=== PATIENT | female | born 2000 | race Caucasian/White ===

== ENCOUNTER 2019-05-13 09:58 | Inpatient (IN) ==
--- NOTE | 2019-05-08 12:50 | Anesthesiology Consultation ---
Date of Service May 08, 2019 Assessment & Plan (1) Encounter for pre-operative examination: Chart Review Chart Review: Acceptable Risk for Surgery Consults Requested none History Surgery Operation Date: 05/13/19 13:15 Proposed Procedures p Laparoscopic Assisted - Ady Hinds DO s J Tube Placement - Ady Hinds DO Height/Weight Height: 5 ft 7 in Weight: 58.513 kg Allergies Allergy/AdvReac Type Severity Reaction Status Date / Time banana Allergy Mild Hives Verified 05/08/19 11:07 latex AdvReac Intermediate Hives Verified 05/08/19 11:07 Medications Home Medications Medication Instructions Recorded Confirmed Last Taken pantoprazole 40 mg PO BID 03/07/19 05/08/19 04/01/19 prucalopride [Motegrity] 2 mg PO QAM 03/07/19 05/08/19 04/01/19 levothyroxine 100 mcg tablet 100 mcg PO QPM tab 03/13/19 05/08/19 04/01/19 norethindrone 1 mg-ethinyl 1 tab PO DAILY tab 03/13/19 05/08/19 04/01/19 estradiol 20 mcg (21)-iron 75 mg (7) tablet acetaminophen [Tylenol] 325 mg PO Q6H PRN 04/02/19 05/08/19 04/02/19 granisetron [Sancuso] 1 patch TOPICAL WK 04/02/19 05/08/19 04/12/19 ondansetron 4 mg disintegrating 8 mg PO Q8H PRN #90 tab 04/14/19 05/08/19 Unknown tablet promethazine 25 mg PO Q6H PRN 04/18/19 05/08/19 Unknown Past Medical History Medical History IBS (irritable bowel syndrome) (Chronic) Migraines (Chronic) H/O Timothy thyroiditis (Resolved) POTS (postural orthostatic tachycardia syndrome) (Chronic) FOLLOWS W/ DR. ARMENTA Gastroparesis (Chronic) Cyclic vomiting syndrome (Acute) DDD (degenerative disc disease) Dysautonomia Psychogenic nonepileptic seizure H/O Past Family History Family History Grandfather (Maternal) Diabetes Heart disease Hypertension Stroke Grandmother Heart disease Cancer Hypertension Mother Family history of reaction to anesthesia PONV Past Surgical History Surgical History History of ankle surgery (Acute) right ankle History of colonoscopy History of esophagogastroduodenoscopy (EGD) Social History Smoking Status: Never smoker Do You Dip or Chew Tobacco: No Hx Alcohol Use: No Alcohol type: hard liquor alcohol intake frequency: holidays/special occasions only Hx Substance Use: No substance use type: does not use Testing Laboratory Results Laboratory Tests 04/18/19 04/18/19 12:36 12:36 WBC 5.07 Hgb 14.5 Plt Count 279 Sodium 137 Potassium 3.7 BUN 5 L Creatinine 0.87 Electrocardiogram Date: 03/07/19 Findings: + NSR @ (66/min) Chest X-Ray Date: 03/07/19 Findings: + NAD
[~2019-05-13 09:58] MED LIST: CEFAZOLIN 2000MG 2,000 MG/15 ML SYR IV SCH; DEXAMETHASONE SOD INJ 4 MG/ML VIAL ONE; LARYING-O-JET KIT (LTA) ONE; LIDOCAINE HCL 2% 2 ML VIAL/AMP(20MG/ML) INFIL ONE; MIDAZOLAM HCL 1 MG/ML 2ML VIAL ONE; ONDANSETRON INJ 2 MG/ML 2 ML VIAL ONE; PROPOFOL IV EMULSION 10 MG/ML 20 ML VIAL IV ONE; SODIUM CHLORIDE 0.9% 1000ML IV SCH; fentaNYL citrate 100 MCG/2 ML VIAL ONE
[2019-05-13] MEDS ORDERED: ePHEDrine sulfate 50 MG/ML AMP IV PRN (10:38)
[2019-05-13] MEDS ORDERED: ATROPINE SULFATE 0.1 MG/ML 10ML SYR IV PRN (10:38)
[2019-05-13] MEDS ORDERED: ONDANSETRON INJ 2 MG/ML 2 ML VIAL IV PRN (10:38)
[2019-05-13] MEDS ORDERED: PROMETHAZINE HCL 12.5 MG in SODIUM CHLORIDE 0.9% 50 ML IV PRN (10:39)
[2019-05-13] MEDS ORDERED: BUPIVACAINE 0.5 % 5 MG/1 ML MPF 30ML VIAL ONE (10:55)
[2019-05-13] MEDS ORDERED: EPINEPHrine INJ 1 MG/ML AMP ONE (10:55)
--- NOTE | 2019-05-13 11:44 | History & Physical Bridge Note ---
Date of Service May 13, 2019 History & Physical Bridge Note I have examined the patient, reviewed the History & Physical and in the interval since the performance of the History & Physical I have noted the following changes of clinical significance: no changes noted
[2019-05-13] MEDS ORDERED: fentaNYL citrate 100 MCG/2 ML VIAL ONE (12:20)
[2019-05-13] MEDS ORDERED: GLYCOPYRROLATE 0.2 MG/ML VIAL ONE ×2 (12:26→13:08)
[2019-05-13] MEDS ORDERED: ONDANSETRON INJ 2 MG/ML 2 ML VIAL ONE (12:26)
[2019-05-13] MEDS ORDERED: NEOSTIGMINE METHYLSULFATE 5 MG/5 ML SYR ONE (12:26)
[2019-05-13] MEDS ORDERED: SUCCINYLCHOLINE 100MG/5ML SYR ONE (12:27)
[2019-05-13] MEDS ORDERED: ROCURONIUM BROMIDE 10 MG/ML 5 ML VIAL ONE (12:27)
[2019-05-13] MEDS ORDERED: PROMETHAZINE HCL INJ 25 MG/ML 1 ML VIAL ONE (13:40)
[2019-05-13] MEDS: fentaNYL citrate 100 MCG/2 ML VIAL IV PRN ×4 (13:43→14:12)
--- NOTE | 2019-05-13 13:58 | Operative Report ---
PG Post Operative Report Pre & Post Diagnosis Operation Date: 05/13/19 11:30 Pre-Op Diagnosis: gastroparesis Post-Op Diagnosis: gastroparesis I identified the patient and participated in the time-out.: Yes Procedure Operation Date: 05/13/19 11:30 Actual Procedures p Laparoscopic Assisted J Tube Placement (Not Applicable) - Ady Hinds DO Surgeon Ady Hinds DO Supervisory Aide matt Johnson Estimated Blood Loss 5 Findings Consistent with Post-Op Diagnosis Specimens none Description of Procedure After informed consent was obtained the patient was taken to the operating room and placed in supine position. After successful intubation the abdomen was sterilely prepped and draped in usual fashion. A periumbilical incision was made with an 11 blade scalpel and carried down through soft tissue using cautery. The anterior fascia was opened using cautery and two #0 Vicryl stay sutures were placed. Peritoneum was elevated with hemostats and incised under direct vision using a Metzenbaum scissor. A finger sweep was performed. A 12 mm Larson trocar was placed and the abdomen was insufflated to 18 mmHg. La parocope was inserted and the abdomen examined in 360 degrees. No gross abnormalities were identified. A left upper quadrant 5 mm trocar was placed under direct vision. I identified the ligament of Treitz. I counted distally about 30 cm. I was able to grasp the small bowel with a grasper and pulled it up to the anterior abdominal wall. At this point we removed the scope and desufflated the abdomen. I extended the 5 mm trocar site using 11 blade scalpel and cautery. We opened the fascia far enough that I could deliver the small bowel onto the anterior abdominal wall. At this point I placed a 3-0 silk pursestring. We made a small enterotomy. I used a 14 Salvadorean T-tube. I placed fenestrations on both arms of the T-tube. I inserted it through the enterotomy such that one arm was proximal one arm was distal. I then secured the pursestring. I then created a Witzel tunnel. I did this using 3-0 silk as well. We did flush the due to prior to placing it and flushed it once it was inserted without difficulty. We pulled the tube up to the anterior abdominal wall and then I closed the fascia using 0 Vicryl in simple interrupted fashion. Wound was thoroughly irrigated and closed using 3-0 Vicryl for deep layers and 4-0 Monocryl for skin. Glue as well as gauze and tape were used as dressings. The patient was awaken extubated and transferred recovery in stable condition. My physician physical therapist assistant was present to the entire case. She will prep patient. Helped with retraction during my procedure as well as with wound closure and dressing placement. I attest to the content of the Intraoperative Record and any orders documented therein. Any exceptions are noted below.
--- NOTE | 2019-05-13 14:38 | Anesthesiology Progress Note ---
Date of Service May 13, 2019 Anesthesia Post Procedure Vital Signs Vital Signs: Temp Pulse Pulse Resp BP Pulse Ox 05/13/19 14:25 37.1 C 70 13 105/65 99 05/13/19 14:15 73 15 103/68 100 05/13/19 14:05 72 13 105/66 100 05/13/19 13:55 79 12 112/66 100 05/13/19 13:45 78 12 109/67 100 05/13/19 13:35 36.6 C 100 H 19 116/67 100 05/13/19 10:27 36.8 C 90 16 107/76 95 Pain Intensity Abdomen: Pain Intensity: 4 Transfer of Care Handoff Completed per policy Notes Mental Status: alert / awake / arousable and participated in evaluation Patient Amnestic to Procedure: Yes Nausea / Vomiting: adequately controlled Pain: adequately controlled Airway Patency, RR, SpO2: stable & adequate BP & HR: stable & adequate Hydration State: stable & adequate Anesthetic Complications: no major complications apparent and Pt Satisfied with anesthetic care
[2019-05-13] MEDS ORDERED: ACETAMINOPHEN 325 MG TAB PO PRN (14:57)
[2019-05-13] MEDS ORDERED: GRANISETRON TOP SCH (14:57)
[2019-05-13] MEDS ORDERED: MoRPHine SULFATE 4 MG/ML 1 ML CARP\\VIAL IV PRN ×3 (14:57→16:32)
[2019-05-13] MEDS ORDERED: MoRPHine SULFATE 10 MG/ML CARP/VIAL IV PRN (14:57)
[2019-05-13] MEDS: PROMETHAZINE HCL 12.5 MG in SODIUM CHLORIDE 0.9% 50 ML IV PRN (15:33)
[2019-05-13] MEDS: HYDROCODONE/ACETAMOPHEN 5/325MG TAB PO PRN ×2 (16:14→21:41)
[2019-05-13] MEDS: LACTATED RINGER'S 1,000 ML IV SCH (16:27)
[2019-05-13] MEDS: PEPTAMEN 1.5 CAL 1,000 ML BAG JT SCH (16:28)
[2019-05-13] MEDS ORDERED: MoRPHine SULFATE 2 MG/ML CARP IV PRN (16:29)
[2019-05-13] MEDS: ONDANSETRON INJ 2 MG/ML 2 ML VIAL IV PRN ×2 (18:12→22:54)
[2019-05-13] MEDS ORDERED: GRANISETRON TD ONE (20:30)
[2019-05-13] MEDS: LEVOTHYROXINE SODIUM 100 MCG TABLET PO SCH (21:10)
[2019-05-13] MEDS: PANTOprazole 40 MG TAB PO SCH (21:10)
[2019-05-14] MEDS: HYDROCODONE/ACETAMOPHEN 5/325MG TAB PO PRN ×4 (02:02→23:12)
[2019-05-14] MEDS: LACTATED RINGER'S 1,000 ML IV SCH (05:06)
[2019-05-14 05:20] LABS: Basophils # (auto) 0.01 K/uL (0-0.2); Basophils % (auto) 0.1 %; Eosinophils # (auto) 0.02 K/uL (0-0.5); Eosinophils % (auto) 0.2 %; Hematocrit (blood only) 31.7 % (37-47); Hemoglobin 10.6 g/dL (12.0-16.0); Immature Granulocytes # (auto) 0.02 K/uL (0.00-0.02); Immature Granulocytes % (auto) 0.2 %; Lymphocytes # (auto) 1.68 K/uL (1.2-3.4); Mean Corpuscular Hemoglobin 29.4 pg (25-34); Mean Corpuscular Hgb Conc 33.4 g/dL (32-36); Mean Corpuscular Volume 88.1 fL (80-100); Mean Platelet Volume 10.2 fL (7.4-10.4); Monocytes # (auto) 0.98 K/uL (0.11-0.59); Monocytes % (auto) 9.9 %; Neutrophils # (auto) 7.16 K/uL (1.4-6.5); Neutrophils % (auto) 72.6 %; Platelet Count 199 K/uL (130-400); RDW Coefficient of Variation 12.7 % (11.5-14.5); RDW Standard Deviation 41.2 fL (36.4-46.3); White Blood Count 9.87 K/uL (4.8-10.8)
[2019-05-14 06:00] LABS: BUN Creatinine Ratio 10.8 (10-20); Calcium 8.3 mg/dl (8.5-10.1); Est GFR (African American) 131.8; Est GFR (Non-African American) 113.7; Potassium 3.5 mmol/L (3.5-5.1)
--- NOTE | 2019-05-14 08:00 | Surgery Progress Note ---
Date of Service May 14, 2019 Assessment & Plan (1) Gastroparesis: POD#1 laparoscopic assisted jejunostomy feeding tube placement Since patient has been tolerating 15ml/hour over the course of a few hours will try to increase TEN again to 25ml/hr. Continue to monitor patient's symptoms w sheila uptitrating feeds Nutrition consultation for recommendations regarding goal rate and what pts 24hour caloric needs will be. Case management consult for help setting up TEN supplies and care for home as above. feeling ok but a little bit overwelmed... TF's back up to 25 cc/hr. tolerating so far. will re-eval later and hopefully can go up to 35 cc/hr. awaiting nutrition and case management consults. pt not ready for d/c. will keep another 24 hours. hopeful d/c tomorrow. Subjective Patient states that she tolerated TEN running at 15ml/hour overnight, however when it was bumped to 25ml/hr she developed some nausea and abdominal pain. At that time the TEN was initially held, then resumed at 15ml/hour. Patient denies vomiting. She tolerated some clears yesterday evening around dinner time. Feels better this AM. Physical Exam Physical Exam: awake/alert Gastrointestinal (Abdomen): Inspection/Auscultation: abdomen not distended Percussion/Palpation: + abdomen tender (mildly kishore-incisions) and abdomen soft J tube intact Results & Data Vital Signs (Past 12 Hours) Vital Signs Temp Pulse Resp BP Pulse Ox 05/14/19 07:00 37.0 C 71 16 90/50 L 98 05/14/19 03:02 37.0 C 78 14 91/49 L 98 05/13/19 23:51 37.2 C 67 14 94/57 L 96 PG Care Time/CCT Total # of Minutes Spent Total Time Spent with Patient: Total time spent is greater than 50% in coordination of care (as documented) at patient's floor/unit and/or counseling patient:
[2019-05-14] MEDS: PANTOprazole 40 MG TAB PO SCH ×2 (09:00→20:17)
[2019-05-14] MEDS: ONDANSETRON INJ 2 MG/ML 2 ML VIAL IV PRN ×2 (09:01→17:34)
[2019-05-14] MEDS ORDERED: POLYETHYLENE (MIRALAX) 17 GM PACK PO PRN (13:04)
--- NOTE | 2019-05-14 13:04 | Anesthesiology Consultation ---
Date of Service May 14, 2019 Assessment & Plan (1) Encounter for pre-operative examination: Chart Review Chart Review: data entry assistant initiated History Surgery Operation Date: 05/13/19 11:30 Proposed Procedures p Laparoscopic Assisted - Ady Hinds DO s J Tube Placement - Ady Hinds DO Height/Weight Height: 5 ft 7 in Weight: 58.513 kg Allergies Allergy/AdvReac Type Severity Reaction Status Date / Time banana Allergy Mild Hives Verified 05/13/19 10:15 latex AdvReac Intermediate Hives Verified 05/13/19 10:15 Medications Home Medications Medication Instructions Recorded Confirmed Last Taken pantoprazole 40 mg PO BID 03/07/19 05/13/19 05/10/19 08:00 prucalopride [Motegrity] 2 mg PO QAM 03/07/19 05/13/19 05/12/19 08:00 levothyroxine 100 mcg tablet 100 mcg PO QPM tab 03/13/19 05/13/19 05/12/19 23:00 norethindrone 1 mg-ethinyl 1 tab PO DAILY tab 03/13/19 05/13/19 05/12/19 23:00 estradiol 20 mcg (21)-iron 75 mg (7) tablet acetaminophen [Tylenol] 325 mg PO Q6H PRN 04/02/19 05/13/19 05/10/19 15:00 granisetron [Sancuso] 1 patch TOPICAL WK 04/02/19 05/13/19 05/11/19 ondansetron 4 mg disintegrating 8 mg PO Q8H PRN #90 tab 04/14/19 05/13/19 05/12/19 10:00 tablet promethazine 25 mg PO Q6H PRN 04/18/19 05/13/19 05/10/19 Active Medications Generic Name Dose Route Start Last Admin Trade Name Freq PRN Reason Stop Dose Admin Acetaminophen 325 mg 05/13/19 14:57 05/14/19 01:01 Tylenol PO 06/12/19 14:56 325 mg Q6H PRN Administration Pain Hydrocodone Bitart/Acetaminophen 1 tab 05/13/19 14:57 05/13/19 16:14 [place] 5/325 PO 05/27/19 14:56 1 tab Q4H PRN Administration MODERATE Pain (Scale 4,5,6) Hydrocodone Bitart/Acetaminophen 2 tab 05/13/19 14:57 05/14/19 12:07 [place] 5/325 PO 05/27/19 14:56 2 tab Q4H PRN Administration SEVERE Pain (Scale 7,8,9,10) Enteral Nutritional Formula 15 ml 05/13/19 16:00 05/13/19 16:28 Peptamen 1.5 [place] JT 06/12/19 15:59 15 ml DAILY@1600 VIKRAM Administration Protocol Promethazine HCl 12.5 mg/ 50.5 mls @ 204 mls/hr 05/13/19 14:57 05/13/19 15:48 Sodium Chloride IV 06/12/19 14:56 Infused Q6H PRN Infusion Nausea And Vomiting Levothyroxine Sodium 100 mcg 05/13/19 21:00 05/13/19 21:10 Synthroid PO 06/12/19 20:59 100 mcg QPM VIKRAM Administration Ondansetron HCl 4 mg 05/13/19 14:57 05/14/19 09:01 Zofran IV 06/12/19 14:56 4 mg Q4H PRN Administration Nausea And Vomiting Pantoprazole Sodium 40 mg 05/13/19 21:00 05/14/19 09:00 Protonix PO 06/12/19 20:59 40 mg BID VIKRAM Administration NPO Date Last Intake of Fluids: 05/12/19 Time Last Intake of Fluids: 23:00 Date Last Intake of Solids: 05/12/19 Time Last Intake of Solids: 19:00 Past Medical History Medical History Cyclic vomiting syndrome (Acute) DDD (degenerative disc disease) Dysautonomia Gastroparesis (Chronic) H/O Timothy thyroiditis (Resolved) IBS (irritable bowel syndrome) (Chronic) Migraines (Chronic) POTS (postural orthostatic tachycardia syndrome) (Chronic) FOLLOWS W/ DR. ARMENTA Psychogenic nonepileptic seizure H/O Past Family History Family History Grandfather (Maternal) Diabetes Heart disease Hypertension Stroke Grandmother Heart disease Cancer Hypertension Mother Family history of reaction to anesthesia PONV Past Surgical History Surgical History History of ankle surgery (Acute) right ankle History of colonoscopy History of esophagogastroduodenoscopy (EGD) Social History Smoking Status: Never smoker Do You Dip or Chew Tobacco: No Hx Alcohol Use: No Alcohol type: hard liquor alcohol intake frequency: holidays/special occasions only Hx Substance Use: No substance use type: does not use Physical Exam Vital Signs Last Vital Signs Temp 36.9 C 05/14/19 12:03 Pulse 72 05/14/19 12:03 Resp 16 05/14/19 12:03 BP 96/62 L 05/14/19 12:03 Pulse Ox 100 05/14/19 12:03 Testing Laboratory Results 05/14/19 04:40 05/14/19 04:40 05/13/19 09:12 POC Ur Test NEG Laboratory Tests 03/16/18 05/14/19 05/14/19 21:58 04:40 04:40 WBC 9.87 Hgb 10.6 L Hct 31.7 L Plt Count 199 Sodium 137 Potassium 3.5 Chloride 104 Carbon Dioxide 25 BUN 8 Creatinine 0.76 Glucose 100 H TSH 3.740 Electrocardiogram Date: 03/07/19 Findings: + NSR @ (66)
--- NOTE | 2019-05-14 13:06 | Anesthesiology Progress Note ---
Date of Service May 14, 2019 Anesthesia Post Procedure Vital Signs Vital Signs: Temp Pulse Pulse Resp BP Pulse Ox 05/14/19 12:03 36.9 C 72 16 96/62 L 100 05/14/19 07:00 37.0 C 71 16 90/50 L 98 05/14/19 03:02 37.0 C 78 14 91/49 L 98 05/13/19 23:51 37.2 C 67 14 94/57 L 96 05/13/19 19:26 37.0 C 76 16 96/59 L 96 05/13/19 17:43 36.7 C 66 16 95/58 L 94 05/13/19 16:48 37.0 C 72 16 94/57 L 99 05/13/19 15:52 37.0 C 74 14 98/59 L 98 05/13/19 15:18 37.1 C 72 14 98/60 L 98 05/13/19 15:10 37.4 C 75 16 100/63 99 05/13/19 14:25 37.1 C 70 13 105/65 99 05/13/19 14:15 73 15 103/68 100 05/13/19 14:05 72 13 105/66 100 05/13/19 13:55 79 12 112/66 100 05/13/19 13:45 78 12 109/67 100 05/13/19 13:35 36.6 C 100 H 19 116/67 100 Pain Intensity Abdomen: Pain Intensity: 7 Notes Mental Status: alert / awake / arousable Patient Amnestic to Procedure: Yes Nausea / Vomiting: improving with treatment (pt stated after she recieved phen ergan postop her nausea went back to her baseline level) Pain: improving with treatment Airway Patency, RR, SpO2: stable & adequate BP & HR: stable & adequate
[2019-05-14] MEDS: PEPTAMEN 1.5 CAL 1,000 ML BAG JT SCH (15:52)
[2019-05-14] MEDS ORDERED: PEPTAMEN 1.5 CAL 1,000 ML BAG JT SCH (16:00)
[2019-05-14] MEDS ORDERED: Nursing to Pharmacy Communication ONE (16:13)
[2019-05-14] MEDS: LEVOTHYROXINE SODIUM 100 MCG TABLET PO SCH (20:17)
[2019-05-14] MEDS: PROMETHAZINE HCL 12.5 MG in SODIUM CHLORIDE 0.9% 50 ML IV PRN (23:33)
[2019-05-15] MEDS: ONDANSETRON INJ 2 MG/ML 2 ML VIAL IV PRN ×2 (04:57→09:35)
[2019-05-15] MEDS: HYDROCODONE/ACETAMOPHEN 5/325MG TAB PO PRN ×2 (04:57→09:34)
[2019-05-15] MEDS: PANTOprazole 40 MG TAB PO SCH (07:39)
--- NOTE | 2019-05-15 12:20 | Surgery Progress Note ---
Date of Service May 15, 2019 Assessment & Plan (1) Jejunostomy tube present: POD#2 lap assisted jejunostomy tube placement Tolerating only slow advancement in TEN Will trial bumping to 35ml/hour now. Goal 50ml/hour over 24 hours Nutrition left TEN recommendations yesterday and case management working on setting up supplies for home Will plan for discharge to home today and allow patient to advance TEN based on her symptoms as above. feeling ok. tolerating 35 cc's/hour at the moment. having some cramping at times. discussed options. pt's mother is an ICU nurse and they would like to go home and try to slowly adjust/increase TF's on their own which I think is reasonable. If she is unable to tolerate we may need to change formulas. d/c instructions given. home care arranged to assist/deliver supplies. Subjective Patient reports she developed nausea, abdominal pain, and distention when TEN increased to 35ml/hour around 8pm last night. Since it has been backed down to 25ml/hour she has been feeling improvement in her symptoms. She is drinking majority of her meals. Passing flatus but no BM yet. Physical Exam Physical Exam: awake/alert Gastrointestinal (Abdomen): Inspection/Auscultation: + abdominal surgical incision (c/d/i with dermabond); abdomen not distended Percussion/Palpation: + abdomen tender (mildly kishore-incisionally) and abdomen soft Results & Data Vital Signs (Past 12 Hours) Vital Signs Temp Pulse Resp BP Pulse Ox 05/15/19 07:27 36.5 C 76 16 97/61 L 97 PG Care Time/CCT Total # of Minutes Spent Total Time Spent with Patient: Total time spent is greater than 50% in coordination of care (as documented) at patient's floor/unit and/or counseling patient:
--- NOTE | 2019-05-15 15:00 | Discharge Summary ---
Date of Service May 15, 2019 Principal Diagnosis s/p laparoscopic assisted jejunostomy tube placement gastroparesis Discharge Exam awake/alert Respiratory normal respiratory effort Gastrointestinal (Abdomen) Inspection/Auscultation: + abdominal surgical incision (c/d/i with dermabond); abdomen not distended Percussion/Palpation: + abdomen tender (mildly kishore-incisionally) and abdomen soft Discharge Data Allergies Allergy/AdvReac Type Severity Reaction Status Date / Time banana Allergy Mild Hives Verified 05/13/19 10:15 latex AdvReac Intermediate Hives Verified 05/13/19 10:15 Consultations 05/13/19 14:57 Consult Case Management - Discharge Planning Routine Procedures Performed Operation Date: 05/13/19 11:30 Actual Procedures p Laparoscopic Assisted J Tube Placement (Not Applicable) - Ady Hinds, DO Hospital Course (1) Gastroparesis: This is a 18y F with a PMH of severe gastroparesis who presents as a referral from her Physician in [place] for placement of a feeding jejunostomy tube. The patient was seen in our clinic previously for surgical planning. On 05/13/19 the patient went to the OR with Dr. Hinds for a laparoscopic assisted jejunostomy tube placement. The patient tolerated the procedure well, see operative report for full details. The patient recovered in the PACU and was transferred to the surgical floor in stable condition. Post operatively the patient's diet was advanced orally as tolerated. Patient mostly stuck to a clear liquid diet of which she tolerated well. Pain was managed with prn medications. Nutrition was consulted for recommendations regarding TEN formula and caloric requirements. Peptamen 1.5 was initially started via her j- tube at 15ml/hour with an ultimate goal of 50ml/hour over 24 hours. She was slow to advance due to intermittent nausea and complaints of abdominal pain with advancements in her feed. She eventually got to 35ml/hour on 05/15. Options were discussed with patient regarding trying another formula, vs continuing to slowly advance current TEN as she tolerates. She and her mother (who is an ICU nurse) ultimately chose to continue to advance the peptamen 1.5 as she tolerates over a longer period of time and expressed wishes to do this at home. Since patient was able to tolerate some oral intake it was agreed upon that patient could be safely discharged to home and continue to advance the TEN to goal of 50ml/hour as she tolerates. Her incisions remained c/d/i. She was instructed to follow up in clinic within 2 weeks for a post op check and to call if she had any issues with her J-tube or with advancing feeds on her own. She was given instructions regarding TEN advancement. Case management helped set up supplies to be delivered to her dorm. On 05/15 she was discharged to home. Total Time Total Time Spent Total Time Spent (In Minutes): 15 Discharge Plan Discharge Items Patient Disposition: Home - Home Health Services Reason For Visit: Gastroparesis Discharge Diagnosis: Jejunostomy feeding tube placement Activity: Per Instructions section Lifting: No more than 10 pounds Bathing Comment: may shower Exercise/Sports: Wait until after follow-up appointment Driving/Machine Use: do not resume driving while taking narcotic for pain Non-emergency contact: Surgeon Call non-emergency contact if: you have any medication questions, your symptoms worsen, your pain is not controlled, your pain is concerning for you, you have a fever, your temperature is above 101.5, your wound has increased redness, your wound has increased drainage and your wound pain has increased Follow-up/Referrals: Ady Hinds, [Surgeon] - (Please call to schedule follow up in clinic within 1-2 weeks. You may call the office sooner if you have any questions/concerns.) [facility] [Primary Care Provider] - Diet: Regular Diet Comment: diet orally as tolerates Addtl Attending Provider Instructions: TEN Formula: Peptamen 1.5 Administer TEN via j-tube at a rate of 50ml/hour over 24 hours Advance by 10ml every 8 hours to goal as tolerated Once you tolerate 24hours continuously you can consider reducing feeding time and running it nocturnally. For example Peptamin 1.5 at 75ml/hour over 16hours/day or Peptamin 1.5 100ml/hour over 12hours/day To meet your free water needs please drink at least 900mL of fluids If you are tolerating fluid by mouth administer and additional 50ml-100ml free water flush 2-3x/day to prevent clogging of the j tube. If you are not tolerating fluid by mouth administer an additional 145ml free water flush 6x/day or every 4 hours. Pending Studies at Discharge: No Stand-Alone Forms: [employer], Smoking Cessation Medications and DC Order Prescriptions: New hydrocodone-acetaminophen [[place]] 5-325 mg tablet 1 - 2 tab PO .every 4-6 hours PRN (Reason: pain, for initial therapy. Max 8 per day) Qty: 15 RF: 0 Continued norethindrone-e.estradiol-iron 1 mg-20 mcg (21)/75 mg (7) tablet 1 tab PO DAILY RF: 0 levothyroxine 100 mcg tablet 100 mcg PO QPM RF: 0 ondansetron 4 mg tablet,disintegrating 8 mg PO Q8H PRN (Reason: nausea and vomiting) Qty: 90 RF: 0 pantoprazole 40 mg Tablet,Delayed Release (Dr/Ec) 40 mg PO BID RF: 0 Motegrity 2 mg Tablet 2 mg PO QAM RF: 0 acetaminophen [Tylenol] 325 mg Tablet 325 mg PO Q6H PRN (Reason: Pain) RF: 0 Sancuso 3.1 mg/24 hour patch weekly 1 patch topical WK RF: 0 promethazine 25 mg Tablet 25 mg PO Q6H PRN (Reason: Nausea And Vomiting) RF: 0 Discharge Orders: Discharge Order (Routine); Ordered 05/15/19 Ordered By: Morenita Adam/Other Patient Handouts: Tube Feeding Flush Dc, Tube Gastrostomy G J Pump Feed Admission Data Admit Date/Time: 05/14/19 08:38 Attending Provider: Ady Hinds Admit Provider: Ady Hinds Primary Care Provider: [place] Other Providers: [facility] ; Lamin John Other Interventions: Discharge Summary Assessment (RN) Last Done: 05/15/19 13:53 DC Date/Time DO NOT enter until pt leaves facility: 05/15/19 14:46
== END 2019-05-15 14:46 | disposition home health service (06) | DRG 392 ==
LOC: ASU 09:58 → 3N 09:58
DX: K31.84 Gastroparesis

== ENCOUNTER 2019-07-29 19:10 | Inpatient (IN) ==
[2019-07-29] MEDS ORDERED: KETOROLAC TROMETHAMINE 15 MG/ML VIAL IV STA (21:15)
[2019-07-29] MEDS ORDERED: ONDANSETRON INJ 2 MG/ML 2 ML VIAL IV STA (21:15)
[2019-07-29] MEDS ORDERED: SODIUM CHLORIDE 0.9% 1000ML 1,000 ML IV ONE (21:15)
[2019-07-29] MEDS ORDERED: MoRPHine SULFATE 4 MG/ML 1 ML CARP\\VIAL IV PRN (21:15)
[2019-07-29 21:55] LABS: Basophils # (auto) 0.04 K/uL (0-0.2); Basophils % (auto) 0.7 %; Eosinophils # (auto) 0.16 K/uL (0-0.5); Eosinophils % (auto) 2.7 %; Hemoglobin 13.4 g/dL (12.0-16.0); Immature Granulocytes # (auto) 0.02 K/uL (0.00-0.02); Immature Granulocytes % (auto) 0.3 %; Lymphocytes # (auto) 2.16 K/uL (1.2-3.4); Lymphocytes % (auto) 36.5 %; Mean Corpuscular Hemoglobin 30.2 pg (25-34); Mean Corpuscular Hgb Conc 33.5 g/dL (32-36); Mean Corpuscular Volume 90.1 fL (80-100); Monocytes # (auto) 0.57 K/uL (0.11-0.59); Monocytes % (auto) 9.6 %; Neutrophils # (auto) 2.97 K/uL (1.4-6.5); Neutrophils % (auto) 50.2 %; Platelet Count 302 K/uL (130-400); Red Blood Count 4.44 M/uL (4.2-5.4); White Blood Count 5.92 K/uL (4.8-10.8)
[2019-07-29 22:05] LABS: Albumin Level 3.4 gm/dl (3.4-5.0); BUN Creatinine Ratio 8.9 (10-20); Calcium 9.1 mg/dl (8.5-10.1); Creatinine Clr Calc Pharmacy 107.6 ml/min; Est GFR (African American) 139.7; Est GFR (Non-African American) 120.6; Magnesium 2.2 mg/dl (1.8-2.4); Potassium 3.7 mmol/L (3.5-5.1)
[2019-07-29 22:08] LABS: Albumin Globulin Ratio 0.9 (0.9-2); Bilirubin,Total 0.2 mg/dl (0.2-1); Globulin 3.9 gm/dl (2.5-4.0); Total Protein 7.3 gm/dl (6.4-8.2)
[2019-07-29 22:16] LABS: Pregnancy Test, Serum Negative (Negative)
[2019-07-29] MEDS ORDERED: IOVERSOL 100ml IV PRN (22:21)
--- NOTE | 2019-07-29 22:43 | CT Scan Report ---
CT abd pelvis IV con only CLINICAL HISTORY: upper abd pain, possible obstruction COMPARISON STUDY: 07/19/2019 TECHNIQUE: The patient was scanned in a dynamic helical fashion during intravenous administration of 92 cc of Optiray 320. A dose lowering technique was utilized adhering to the principles of ALARA. CT DOSE: 324.29 mGy.cm FINDINGS: Lower chest: The heart is normal in size and configuration, without pericardial effusion. The lung ba ses and pleural spaces are clear. Liver: The contrast-enhanced liver is normal in size, contour, and attenuation. There is no intrahepa tic biliary ductal dilatation. The hepatic veins and portal veins are patent. Gallbladder: Unremarkable. Spleen: Normal in size and attenuation. Pancreas: Unremarkable. Adrenal glands: Unremarkable. Kidneys: There is symmetric renal cortical enhancement. The kidneys are normal in size without hydron ephrosis. Bowel: There is an indwelling Y-shaped jejunostomy tube in similar orientation to the preceding study . There are no transition zones to indicate bowel obstruction. There is moderate fecal retention. The re is no acute diverticulitis. Bowel evaluation is limited due to the lack of enteric contrast. There are no findings to indicate acute appendicitis.. There is a stable mesenteric swirl pattern. Many of the small bowel loops are located within the right upper quadrant, unchanged from the prior study. T his could be secondary to a congenital malrotation. Peritoneum: There is no intraperitoneal free air or abdominal ascites. Vasculature: The abdominal aorta is normal in course and caliber. Adenopathy: There are mildly prominent mesenteric lymph nodes unchanged from the preceding study. Pelvic viscera: The bladder, and pelvic viscera are unremarkable. Skeletal structures: No destructive osseous lesions are seen. IMPRESSION: 1. No evidence of bowel obstruction. No evidence of free air 2. Indwelling jejunostomy tube 3. Moderate fecal retention 4. No acute inflammatory changes identified 5. Proximal small bowel loops remain positioned within the right upper quadrant. ACT 112: Negative or not required by law. Electronically signed by: Alan Montes De Oca M.D. 07/29/2019 10:41 PM
[2019-07-29 22:57] LABS: Appearance Urine Clear (Clear); Bilirubin Urine Negative (Negative); Blood Urine Negative (Negative); Color Urine Yellow; Glucose Urine UA Negative (Negative); Ketones Urine Negative (Negative); Leukocyte Esterase Urine Negative (Negative); Nitrite Urine Negative (Negative); Protein Urine Negative (Negative); Specific Gravity Urine 1.019 (1.000-1.030); Urobilinogen Urine Negative (Negative); pH Urine 7.5 (4.5-7.5)
[2019-07-29] MEDS ORDERED: SODIUM CHLORIDE 0.9% 1000ML 500 ML IV ONE (23:15)
--- NOTE | 2019-07-29 23:18 | Emergency Department Note ---
Entered by Mona Meneses acting as a scribe for History of Present Illness General Chief complaint: Abdominal Pain Stated complaint: PAIN AROUNG JTUBE PUSSY GREEN DRAINAGE Time Seen by Provider: 07/29/19 21:09 Source: patient History of Present Illness Onset (ago): week(s) (2) Location: abdomen Radiation: other (sides) Pain Consistency: + other (worsening) Maximum Pain Intensity: 10 Current Pain Intensity: 8 Associated symptoms: + denies other symptoms (diarrhea), + nausea/vomiting and + other (burning with urination) Treatments prior to arrival: other (oxycodone) The patient is a 19 year old female who presents to the Emergency Room with complaints of worsening abdominal pain beginning two weeks ago. The patient notes the pain is spreading into her sides. She notes the pain is an 8/10. The patient reports a history of gastroparesis and states she had a feeding tube placed 2 months ago. She notes she tries to eat by mouth but the tube is her main source of food. The patient reports redness around the tube. She reports she was seen in the ER 10 days ago and started on Bactrim and Keflex. She notes she was then told to stop the Bactrim. The patient states she came into the ER last night and was given IV Rocephin. She notes her Keflex was stopped and she was started on Clindamycin. The patient reports nausea, vomiting, and burning with urination. She denies diarrhea. She reports being unable to finish her feedings in the past several days because of the pain. She reports she took oxycodone 3.5 hours ago. The patient denies abdominal surgeries, abdominal obstructions, and the chance of . Home Medications Home Medications Medication Instructions Recorded Confirmed Type Motegrity 2 mg PO QAM 03/07/19 07/29/19 History pantoprazole 40 mg PO BID 03/07/19 07/29/19 History levothyroxine 100 mcg tablet 100 mcg PO HS tab 03/13/19 07/29/19 History norethindrone 1 mg-ethinyl 1 tab PO HS tab 03/13/19 07/29/19 History estradiol 20 mcg (21)-iron 75 mg (7) tablet Sancuso 1 patch TOPICAL MO 04/02/19 07/29/19 History promethazine 25 mg PO Q6H PRN 04/18/19 07/29/19 History cholecalciferol (vitamin D3) 1,000 unit PO QAM 07/18/19 07/29/19 History [Vitamin D3] folic acid 0.8 mg PO QAM 07/18/19 07/29/19 History ondansetron HCl [Zofran] 4 mg PO DAILY PRN #6 tab 07/19/19 07/29/19 Rx oxycodone 5 mg PO Q6H PRN #14 tab 07/19/19 07/29/19 Rx acetaminophen [Tylenol Extra 1,000 mg PO Q12H 07/28/19 07/29/19 History Strength] clindamycin HCl 300 mg PO Q6H 10 Days #40 cap 07/29/19 07/29/19 Rx Allergies Allergy/AdvReac Type Severity Reaction Status Date / Time banana Allergy Mild HIVES, Verified 07/29/19 23:22 TONGUE TINGLING, NAUSEA latex AdvReac Intermediate Hives Verified 07/29/19 23:22 Past Med/Surg History Medical History Cyclic vomiting syndrome (Acute) DDD (degenerative disc disease) Dysautonomia Gastroparesis (Chronic) H/O Timothy thyroiditis (Resolved) IBS (irritable bowel syndrome) (Chronic) Migraines (Chronic) POTS (postural orthostatic tachycardia syndrome) (Chronic) FOLLOWS W/ DR. 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 and A total of 10 systems reviewed and were otherwise negative Physical Exam Vital Signs Vital Signs - 24 hr 07/29/19 19:18 07/29/19 21:11 07/29/19 21:15 Temperature 37.0 C Temperature Source Oral Pulse Rate 77 79 Pulse Rate [Left Finger] 73 Respiratory Rate 20 20 Respiratory Effort / Characteristics Non-Labored Spontaneous Respiratory Depth Normal Blood Pressure 117/78 Blood Pressure [Left Arm] 119/77 Blood Pressure Mean 91 Blood Pressure Mean [Left Arm] 91 Blood Pressure Position Sitting Blood Pressure Position [Left Arm] Sitting Pulse Oximetry 99 100 100 Oxygen Delivery Method Room Air Room Air Sepsis Recent Fever Within 48 Hours No Sepsis New/Unexplained Change in Mental Status No Sepsis Action Taken by Nursing No Action Required 07/29/19 23:00 07/29/19 23:40 Temperature Temperature Source Pulse Rate Pulse Rate [Left Finger] 72 70 Respiratory Rate 20 16 Respiratory Effort / Characteristics Respiratory Depth Normal Blood Pressure Blood Pressure [Left Arm] 120/82 106/69 Blood Pressure Mean Blood Pressure Mean [Left Arm] 94 81 Blood Pressure Position Blood Pressure Position [Left Arm] Lying Pulse Oximetry 99 97 Oxygen Delivery Method Room Air Room Air Sepsis Recent Fever Within 48 Hours Sepsis New/Unexplained Change in Mental Status Sepsis Action Taken by Nursing GENERAL: Patient is in no acute distress. HEENT: No acute trauma, normocephalic atraumatic, mucous membranes moist, no nasal congestion, no scleral icterus. NECK: No stridor, no adenopathy, no meningismus, trachea is midline. LUNGS: Clear to auscultation bilaterally, no wheeze, no rhonchi, breath sounds e qual. HEART: Without murmurs gallops or rubs, regular rate and rhythm. ABDOMEN: Diffusely moderately tender. Feeding tube in place in LUQ. No erythema around insertion site. No hernia. No peritonitis. EXTREMITIES: No cyanosis or edema, full range of motion of all the joints without pain or difficulty, no signs for acute trauma. NEUROLOGIC: Oriented x 3, no acute motor or sensory deficits, no focal weakness. SKIN: No rash, no jaundice, no diaphoresis. Course Course 2109: Past medical records reviewed. The patient was evaluated in room A12B. A complete history and physical exam was performed. 2249: The nurse called stating the patient's urine dip was negative for both infection and blood. 2312: Upon reevaluation, the patient states she does not think she is capable of going home as she was here three times in the past week. 2330: Upon reevaluation, I discussed findings and results with the patient. She verbalized agreement of the treatment plan. I spoke with Dr. Palafox of the [facility] Hospitalist [facility]. The patient will be evaluated for further management and care. Administered Medications Ioversol (Optiray 320 100ml) 92 ml IV ONCE PRN PRN Reason: Interaction Checking Stop: 08/02/19 22:20 Last Admin: 07/29/19 22:22 Dose: 92 ml Documented by: [id number] Morphine Sulfate (Morphine Sulfate) 4 mg IV Q15M PRN PRN Reason: Pain Stop: 08/12/19 21:14 Last Admin: 07/29/19 21:47 Dose: 4 mg Documented by: [id number] Discontinued Medications Sodium Chloride (Nss 1000ml) 1,000 mls @ 999 mls/hr IV .Q1H1M ONE Stop: 07/29/19 22:15 Last Admin: 07/29/19 21:46 Dose: 999 mls/hr Documented by: [id number] Sodium Chloride (Nss 1000ml) 500 mls @ 999 mls/hr IV .Q31M ONE Stop: 07/29/19 23:45 Last Admin: 07/29/19 23:36 Dose: 999 mls/hr Documented by: [id number] Ketorolac Tromethamine (Toradol) 15 mg IV NOW STA Stop: 07/29/19 21:16 Last Admin: 07/29/19 21:46 Dose: 15 mg Documented by: [id number] Ondansetron HCl (Zofran) 4 mg IV NOW STA Stop: 07/29/19 21:16 Last Admin: 07/29/19 21:46 Dose: 4 mg Documented by: [id number] Medical Decision Making Differential Diagnosis Differential diagnosis: gastroparesis, bowel obstruction, dehydration, cellulitis, medication reaction, UTI, , electrolyte imbalance Medical Records Attestation: I reviewed the patient's medical records. Home Medications Current Medication List: was personally reviewed by me Laboratory Data Attestation: I reviewed the patient's lab results. Result diagrams: 07/29/19 21:20 07/29/19 21:20 Lab Results 07/29/19 07/29/19 07/29/19 Range/Units 21:20 21:20 21:20 WBC 5.92 (4.8-10.8) K/uL RBC 4.44 (4.2-5.4) M/uL Hgb 13.4 (12.0-16.0) g/dL Hct 40.0 (37-47) % MCV 90.1 (80-100) fL MCH 30.2 (25-34) pg MCHC 33.5 (32-36) g/dL Plt Count 302 (130-400) K/uL Immature Gran % (Auto) 0.3 % Neut % (Auto) 50.2 % Lymph % (Auto) 36.5 % [place] % (Auto) 9.6 % Eos % (Auto) 2.7 % Baso % (Auto) 0.7 % Immature Gran # (Auto) 0.02 (0.00-0.02) K/uL Neut # (Auto) 2.97 (1.4-6.5) K/uL Lymph # (Auto) 2.16 (1.2-3.4) K/uL [place] # (Auto) 0.57 (0.11-0.59) K/uL Eos # (Auto) 0.16 (0-0.5) K/uL Baso # (Auto) 0.04 (0-0.2) K/uL Sodium 138 (136-145) mmol/L Potassium 3.7 (3.5-5.1) mmol/L Chloride 106 (98-107) mmol/L Carbon Dioxide 27 (21-32) mmol/L Anion Gap 5.0 (3-11) BUN 6 L (7-18) mg/dl Creatinine 0.72 (0.6-1.2) mg/dl Est Cr Clr Drug Dosing 107.6 ml/min Est GFR ( Amer) 139.7 Est GFR (Non-Af Amer) 120.6 BUN/Creatinine Ratio 8.9 L (10-20) Glucose 85 (70-99) mg/dl Calcium 9.1 (8.5-10.1) mg/dl Magnesium 2.2 (1.8-2.4) mg/dl Total Bilirubin 0.2 (0.2-1) mg/dl AST 15 (15-37) U/L ALT 13 (12-78) U/L Alkaline Phosphatase 42 L (45-117) U/L Total Protein 7.3 (6.4-8.2) gm/dl Albumin 3.4 (3.4-5.0) gm/dl Globulin 3.9 (2.5-4.0) gm/dl Albumin/Globulin Ratio 0.9 (0.9-2) Lipase 98 (73-393) U/L HCG, Qual Negative (Negative) Urine Color Urine Appearance (Clear) Urine pH (4.5-7.5) Ur Specific [place] (1.000-1.030) Urine Protein (Negative) Urine Glucose (UA) (Negative) Urine Ketones (Negative) Urine Blood (Negative) Urine Nitrite (Negative) Urine Bilirubin (Negative) Urine Urobilinogen (Negative) Ur Leukocyte Esterase (Negative) 07/29/19 Range/Units 22:35 WBC (4.8-10.8) K/uL RBC (4.2-5.4) M/uL Hgb (12.0-16.0) g/dL Hct (37-47) % MCV (80-100) fL MCH (25-34) pg MCHC (32-36) g/dL Plt Count (130-400) K/uL Immature Gran % (Auto) % Neut % (Auto) % Lymph % (Auto) % [place] % (Auto) % Eos % (Auto) % Baso % (Auto) % Immature Gran # (Auto) (0.00-0.02) K/uL Neut # (Auto) (1.4-6.5) K/uL Lymph # (Auto) (1.2-3.4) K/uL Caswell # (Auto) (0.11-0.59) K/uL Eos # (Auto) (0-0.5) K/uL Baso # (Auto) (0-0.2) K/uL Sodium (136-145) mmol/L Potassium (3.5-5.1) mmol/L Chloride (98-107) mmol/L Carbon Dioxide (21-32) mmol/L Anion Gap (3-11) BUN (7-18) mg/dl Creatinine (0.6-1.2) mg/dl Est Cr Clr Drug Dosing ml/min Est GFR ( Amer) Est GFR (Non-Af Amer) BUN/Creatinine Ratio (10-20) Glucose (70-99) mg/dl Calcium (8.5-10.1) mg/dl Magnesium (1.8-2.4) mg/dl Total Bilirubin (0.2-1) mg/dl AST (15-37) U/L ALT (12-78) U/L Alkaline Phosphatase (45-117) U/L Total Protein (6.4-8.2) gm/dl Albumin (3.4-5.0) gm/dl Globulin (2.5-4.0) gm/dl Albumin/Globulin Ratio (0.9-2) Lipase (73-393) U/L HCG, Qual (Negative) Urine Color Yellow Urine Appearance Clear (Clear) Urine pH 7.5 (4.5-7.5) Ur Specific [place] 1.019 (1.000-1.030) Urine Protein Negative (Negative) Urine Glucose (UA) Negative (Negative) Urine Ketones Negative (Negative) Urine Blood Negative (Negative) Urine Nitrite Negative (Negative) Urine Bilirubin Negative (Negative) Urine Urobilinogen Negative (Negative) Ur Leukocyte Esterase Negative (Negative) Imaging Data Radiologist's Impression: Radiology results as stated below per my review and the radiologist's interpretation: CT abd pelvis IV con only CLINICAL HISTORY: upper abd pain, possible obstruction COMPARISON STUDY: 07/19/2019 TECHNIQUE: The patient was scanned in a dynamic helical fashion during intravenous administration of 92 cc of Optiray 320. A dose lowering technique was utilized adhering to the principles of ALARA. CT DOSE: 324.29 mGy.cm FINDINGS: Lower chest: The heart is normal in size and configuration, without pericardial effusion. The lung bases and pleural spaces are clear. Liver: The contrast-enhanced liver is normal in size, contour, and attenuation. There is no intrahepatic biliary ductal dilatation. The hepatic veins and portal veins are patent. Gallbladder: Unremarkable. Spleen: Normal in size and attenuation. Pancreas: Unremarkable. Adrenal glands: Unremarkable. Kidneys: There is symmetric renal cortical enhancement. The kidneys are normal in size without hydronephrosis. Bowel: There is an indwelling Y-shaped jejunostomy tube in similar orientation to the preceding study. There are no transition zones to indicate bowel obstruction. There is moderate fecal retention. There is no acute diverticuli tis. Bowel evaluation is limited due to the lack of enteric contrast. There are no findings to indicate acute appendicitis.. There is a stable mesenteric swirl pattern. Many of the small bowel loops are located within the right upper quadrant, unchanged from the prior study. This could be secondary to a congenital malrotation. Peritoneum: There is no intraperitoneal free air or abdominal ascites. Vasculature: The abdominal aorta is normal in course and caliber. Adenopathy: There are mildly prominent mesenteric lymph nodes unchanged from the preceding study. Pelvic viscera: The bladder, and pelvic viscera are unremarkable. Skeletal structures: No destructive osseous lesions are seen. IMPRESSION: 1. No evidence of bowel obstruction. No evidence of free air 2. Indwelling jejunostomy tube 3. Moderate fecal retention 4. No acute inflammatory changes identified 5. Proximal small bowel loops remain positioned within the right upper quadrant. ACT 112: Negative or not required by law. Electronically signed by: Alan Montes De Oca M.D. 07/29/2019 10:41 PM Blood Pressure Blood Pressure Findings: Normal blood pressure MDM Narrative There is no leukocytosis or concerning anemia. No significant electrolyte abnormality or kidney failure. No worrisome liver enzyme elevation. No evidence for pancreatitis. testing was negative. Urinalysis does not show any evidence for infection. Abdominal and pelvis CT shows some chronic findings, no abscess, no bowel obstruction. No evidence for appendicitis. On exam, the patient was tender across the upper abdomen, the feeding tube i nsertion site did not show any significant erythema or discharge. The patient was not febrile, she was not toxic. The patient received IV morphine, IV Toradol, IV Zofran. She was given 1.5 L of IV saline for hydration. The patient is concerned about how things have gone over the last week. She is now on her third antibiotic. She cannot do her feeding tube feeds, she is in a lot of pain and is not comfortable with discharge home. At this point, the cause for the patient's complaints is not completely clear. She though has technically failed outpatient treatment. She will be brought int o the hospital for pain control, symptom control and further work-up. I did speak to the patient and case management. The on-call hospitalist was consulted. Impression & Plan Upper abdominal pain, Gastroparesis, Abdominal wall cellulitis, Failure of outpatient treatment Discharge Plan Visit Data Chief Complaint: Abdominal Pain Stated Complaint: PAIN AROUNG JTUBE PUSSY GREEN DRAINAGE Other Complaint: Pain (Generalized) ED Provider: [facility] Discharge Problem: Upper abdominal pain, Gastroparesis, Abdominal wall cellulitis, Failure of o utpatient treatment Patient Disposition: Being Evaluated by Hospitalist Forms Stand Alone Forms: My [facility] Prescriptions Prescriptions: No Action norethindrone-e.estradiol-iron 1 mg-20 mcg (21)/75 mg (7) tablet 1 tab PO HS RF: 0 levothyroxine 100 mcg tablet 100 mcg PO HS RF: 0 pantoprazole 40 mg Tablet,Delayed Release (Dr/Ec) 40 mg PO BID RF: 0 Motegrity 2 mg Tablet 2 mg PO QAM RF: 0 Sancuso 3.1 mg/24 hour patch weekly 1 patch topical MO RF: 0 cholecalciferol (vitamin D3) [Vitamin D3] 25 mcg (1,000 unit) Capsule 1,000 unit PO QAM RF: 0 folic acid 0.8 mg Capsule 0.8 mg PO QAM RF: 0 oxycodone 5 mg tablet 5 mg PO Q6H PRN (Reason: pain) Qty: 14 RF: 0 ondansetron HCl [Zofran] 4 mg tablet 4 mg PO DAILY PRN (Reason: nausea and vomiting) Qty: 6 RF: 0 acetaminophen [Tylenol Extra Strength] 500 mg Tablet 1,000 mg PO Q12H RF: 0 clindamycin HCl 300 mg capsule 300 mg PO Q6H 10 Days Qty: 40 RF: 0 promethazine 25 mg Tablet 25 mg PO Q6H PRN (Reason: Nausea And Vomiting) RF: 0 Referrals Referrals: [place] [Primary Care Provider] - The scribe's documentation has been prepared under my direction and personally reviewed by me in its entirety. I confirm that the note above accurately reflects all work, treatment, procedures, and medical decision making performed by me.
--- NOTE | 2019-07-30 01:28 | History & Physical Report ---
Date of Service July 30, 2019 Assessment & Plan (1) Abdominal pain: Edilma Rai is a 19 y/o female with past medical hx of Dysautonomia, Gastroparesis leading to J-tube placement 05/2019, hypothyroid, GERD who presented for abdominal pain and concern for Jtube infection. Unsure of clear etiology, her lab reports and workup are out of proportion to her symptoms. However, she seems to not be doing well at home. - will intend to make patient comfortable with Morphine 2mg IV PRN q4h, but she appears not opioid naive from recent chart review. - There appears to be no acute infectious process, normal WBC, relatively normal appearing Jtube on exam, CT Abd relatively benign shows some moderate fecal retention, no acute inflamm changes, no obstruction. - Possible this could be related to tube feed rates in setting of narcotic causing constipation - Possible there is a problem with the J-tube itself - she appears comfortable and non-toxic here in ED - Will make NPO and will discontinue antibiotics, not sure if numerous antibiotic changes are contributing, and do not want patient to have adverse affect of antibiotic use. - will consult GI for recs as complicated patient with abdominal pain of unclear etiology. - Urine preg negative; UTI negative - Prior culture showing S. Aureus whiteside-sensitive, possible this could be skin marion. Code: Full FENGI: Will consult Acute Care Nursing Assistant for tube feeds, NPO now DVT ppx: SCDs Dispo: Admit med/surg (2) Gastroparesis: - No vomiting currently - Will treat with Zofran IV PRN and Sancuso patch - Otherwise, will not add other meds or add more anti-nausea meds at this time (3) Jejunostomy tube present: - no signs of infection (4) History of jejunostomy tube placement: (5) Constipation: noted on CT c/w home Motegrity (6) Hypothyroidism: c/w home synthroid (7) H/O Timothy thyroiditis: noted cause of hypothyroid (8) POTS (postural orthostatic tachycardia syndrome): currently hemodynamically stable History of Present Illness Chief Complaint: Abdominal Pain and J-tube problems Primary Care Provider: [facility] Edilma Rai is a 19 y/o female with past medical hx of Dysautonomia, Gastroparesis leading to J-tube placement 05/2019, hypothyroid, GERD who presented for abdominal pain and concern for Jtube infection. She notes onset of abdominal pain that is located around J-tube site about 2 weeks ago. It is worsened with movements and with J-tube feeds. She has had 3 prior ED visits for same since 07/18/19, then 07/19/19, then yesterday 07/28/19, and now today. 07/18/19 visit - Received Rocephin IV in ED, then was discharged home on Keflex 500mg for possible soft tissue infection around J-tube site with redness and drainage. Also received Morphine 4mg IV x2, Zofran 4mg IV x1, Had CT Abd mild inflammation in abdominal wall. 07/19/19 visit - returned for subjective worsening of symptoms, Had CT Abd without changes, Dilaudid 1mg x1, Oxycodone Rx for breakthrough pain, started on Bactrim. 07/21/19 - saw Surgeon Dr. Hinds as outpatient, was doing better, believed to have mild infection of tube, but patient was noted to be doing better. 07/28/19 - seen in ED last night for same, Morphine 6mg IV x1, Zofran, Rocephin 2gm IV. Was switched to Clindamycin PO Today she returns for same, noting drainage around tube site, but in ED during H&P, noted that erythema has resolved. She noted to have vomiting x1 for when she tool Clindamycin. She had another CT scan showing no inflammation, moderate fecal retention. She notes feeling better s/p pain analgesics, no current nausea. She notes she follows with a Gastroparesis specialist at [facility]. She follows with Asa Castaneda for her Dysautonomia. She notes she takes Zofran PRN, Promethazine 25mg q6H PRN, Sancuso patch for nausea related to her gastroparesis. Her labs were unremarkable here. Allergies Allergy/AdvReac Type Severity Reaction Status Date / Time banana Allergy Mild HIVES, Verified 07/29/19 23:22 TONGUE TINGLING, NAUSEA latex AdvReac Intermediate Hives Verified 07/29/19 23:22 Home Medications Home Medications Medication Instructions Recorded Confirmed Type Motegrity 2 mg PO QAM 03/07/19 07/29/19 History pantoprazole 40 mg PO BID 03/07/19 07/29/19 History levothyroxine 100 mcg tablet 100 mcg PO HS tab 03/13/19 07/29/19 History norethindrone 1 mg-ethinyl 1 tab PO HS tab 03/13/19 07/29/19 History estradiol 20 mcg (21)-iron 75 mg (7) tablet Sancuso 1 patch TOPICAL MO 04/02/19 07/29/19 History promethazine 25 mg PO Q6H PRN 04/18/19 07/29/19 History cholecalciferol (vitamin D3) 1,000 unit PO QAM 07/18/19 07/29/19 History [Vitamin D3] folic acid 0.8 mg PO QAM 07/18/19 07/29/19 History ondansetron HCl [Zofran] 4 mg PO DAILY PRN #6 tab 07/19/19 07/29/19 Rx oxycodone 5 mg PO Q6H PRN #14 tab 07/19/19 07/29/19 Rx acetaminophen [Tylenol Extra 1,000 mg PO Q12H 07/28/19 07/29/19 History Strength] clindamycin HCl 300 mg PO Q6H 10 Days #40 cap 07/29/19 07/29/19 Rx Past Med/Surg History Medical History Cyclic vomiting syndrome (Acute) DDD (degenerative disc disease) Dysautonomia Gastroparesis (Chronic) H/O Timothy thyroiditis (Resolved) IBS (irritable bowel syndrome) (Chronic) Migraines (Chronic) POTS (postural orthostatic tachycardia syndrome) (Chronic) FOLLOWS W/ DR. CASTANEDA Psychogenic nonepileptic seizure H/O Surgical History History of ankle surgery (Acute) right ankle History of colonoscopy History of esophagogastroduodenoscopy (EGD) Family History Grandfather (Maternal) Diabetes Heart disease Hypertension Stroke Grandmother Heart disease Cancer Hypertension Mother Family history of reaction to anesthesia PONV Social History Preferred Language: Slovenian Communication Ability: Effective Punch Box Tender Required: No Beliefs That Will Affect Care: None marital status: Single Current Living Situation: Other Current Living Situation Comment: pt lives in a dorm room Other Information That Helps Us Care for You: No Feels Safe at Home: Yes Safety Concerns: Feels Safe At This Time Smoking Status: Never smoker Do You Dip or Chew Tobacco: No ; Second Hand Exposure: No ; Tobacco Cessation Education Requested by Patient: No Hx Alcohol Use: No Hx Substance Use: No Review of Systems Review of Systems: All systems reviewed & are unremarkable except as noted in HPI & below Constitutional: no fever and no chills Ear, Nose, Mouth, Throat: no sore throat Respiratory: no cough and no dyspnea Cardiovascular: no chest pain and no edema Gastrointestinal: + abdominal pain Physical Exam Constitutional: WD/WN, vitals as above comfortable and + combative Sitting up in exam bed Eyes: PERRL, conjunctivae normal, anicteric sclerae ENMT: external ear and nose normal, oropharynx normal Neck: normal visual inspection and trachea midline Respiratory: normal respiratory effort, lungs clear to auscultation Cardiovascular: RRR, no murmur, no edema Gastrointestinal (Abdomen): Percussion/Palpation: + abdomen tender (RLQ and LLQ without rebound, tenderness out of porportion to palpation) and abdomen soft; no guarding and abdomen not rigid J tube site without erythema, some mild mucous around but do not appreciate infectious pus drainage Musculoskeletal: Head/Neck/Chest: normocephalic and head atraumatic Skin: no rashes, warm and dry Neurologic: moves all extremities and awake Psychiatric: A+Ox3, euthymic affect Results & Data Vital Signs (Past 12 Hours) Vital Signs Temp Pulse Pulse Resp BP BP Pulse Ox 07/29/19 23:40 70 16 106/69 97 07/29/19 23:00 72 20 120/82 99 07/29/19 21:15 79 100 07/29/19 21:11 73 20 119/77 100 07/29/19 19:18 37.0 C 77 20 117/78 99 Laboratory Results Laboratory Results - last 24 hr 07/29/19 07/29/19 07/29/19 21:20 21:20 21:20 WBC 5.92 RBC 4.44 Hgb 13.4 Hct 40.0 MCV 90.1 MCH 30.2 MCHC 33.5 Plt Count 302 Immature Gran % (Auto) 0.3 Neut % (Auto) 50.2 Lymph % (Auto) 36.5 [place] % (Auto) 9.6 Eos % (Auto) 2.7 Baso % (Auto) 0.7 Immature Gran # (Auto) 0.02 Neut # (Auto) 2.97 Lymph # (Auto) 2.16 [place] # (Auto) 0.57 Eos # (Auto) 0.16 Baso # (Auto) 0.04 Sodium 138 Potassium 3.7 Chloride 106 Carbon Dioxide 27 Anion Gap 5.0 BUN 6 L Creatinine 0.72 Est Cr Clr Drug Dosing 107.6 Est GFR ( Amer) 139.7 Est GFR (Non-Af Amer) 120.6 BUN/Creatinine Ratio 8.9 L Glucose 85 Calcium 9.1 Magnesium 2.2 Total Bilirubin 0.2 AST 15 ALT 13 Alkaline Phosphatase 42 L Total Protein 7.3 Albumin 3.4 Globulin 3.9 Albumin/Globulin Ratio 0.9 Lipase 98 HCG, Qual Negative Urine Color Urine Appearance Urine pH Ur Specific [place] Urine Protein Urine Glucose (UA) Urine Ketones Urine Blood Urine Nitrite Urine Bilirubin Urine Urobilinogen Ur Leukocyte Esterase 07/29/19 22:35 WBC RBC Hgb Hct MCV MCH MCHC Plt Count Immature Gran % (Auto) Neut % (Auto) Lymph % (Auto) [place] % (Auto) Eos % (Auto) Baso % (Auto) Immature Gran # (Auto) Neut # (Auto) Lymph # (Auto) [place] # (Auto) Eos # (Auto) Baso # (Auto) Sodium Potassium Chloride Carbon Dioxide Anion Gap BUN Creatinine Est Cr Clr Drug Dosing Est GFR ( Amer) Est GFR (Non-Af Amer) BUN/Creatinine Ratio Glucose Calcium Magnesium Total Bilirubin AST ALT Alkaline Phosphatase Total Protein Albumin Globulin Albumin/Globulin Ratio Lipase HCG, Qual Urine Color Yellow Urine Appearance Clear Urine pH 7.5 Ur Specific [place] 1.019 Urine Protein Negative Urine Glucose (UA) Negative Urine Ketones Negative Urine Blood Negative Urine Nitrite Negative Urine Bilirubin Negative Urine Urobilinogen Negative Ur Leukocyte Esterase Negative Code Status & VTE Plan Code Status Full Code VTE Prophylaxis Plan VTE Prophylaxis will be ordered: Yes Supervising Physician Co-Signing Physician Notes Patient was seen and examined by me personally. I reviewed the chart, the orders and discussed the case in detail with Dr. Harsha Negrete DO . I read this H&P and agree with its contents to entirety. Resident Activity Tracking Resident Involvement: Resident Care Provided Care Provided: Adult [facility] Medicine (1) Constipation Constipation type: unspecified constipation type Qualified Code(s): K59.00 - Constipation, unspecified
[2019-07-30] MEDS: MoRPHine SULFATE 2 MG/ML CARP IV PRN ×4 (03:09→20:03)
[2019-07-30] MEDS: SODIUM CHLORIDE 0.9% 1000ML 1,000 ML IV SCH ×2 (03:09→14:16)
--- NOTE | 2019-07-30 06:46 | Billing Data ---
Date of Service July 30, 2019 Coding Level of Care Code 19779 OBS Care - Level 3
[2019-07-30] MEDS: PRUCALOPRIDE 2 MG PO SCH (11:30)
[2019-07-30] MEDS: POLYETHYLENE (MIRALAX) 17 GM PACK PO SCH (14:51)
--- NOTE | 2019-07-30 14:54 | Consultation Report ---
DATE OF CONSULTATION: 07/30/2019 REASON FOR EVALUATION: Abdominal pain. 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 In May 2019, she had a jejunostomy tube placed to begin 24-hour tube feedings. She is also being followed at [facility] by a motility expert who has placed her on Motegrity 2 mg once a day to try to improve her intestinal motility. I am not sure this is very successful, but there is no FDA approved treatment for this. They have decided not to pursue a gastric stimulator. She has been having pain around the jejunostomy site, has been treated with some antibiotics over the last couple weeks, but came into the hospital with recurrent abdominal pain on the left side. She is only moving her bowels every 2 or 3 days and occasionally is taking MiraLax to help if she goes more than 4 days without a bowel movement. Her abdominal x-rays show that she has increased stool burden in the colon and some of her small bowel is located in the right upper abdomen which suggested partial intestinal malrotation. PAST MEDICAL HISTORY: Remarkable for gastroparesis, constipation, hypothyroidism, postural orthostatic tachycardic syndrome. MEDICATIONS: Include Motegrity, pantoprazole, levothyroxine, control pills, Sancuso antinausea patch, promethazine, vitamin D, folic acid, Zofran, oxycodone, Tylenol and clindamycin. ALLERGIES: BANANAS AND LATEX. FAMILY HISTORY: Positive for mother with postoperative nausea symptoms. 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 REVIEW OF SYSTEMS: Positive for abdominal pain. Remainder is negative. PHYSICAL EXAMINATION: GENERAL: The patient appears awake, alert, in no acute distress. VITAL SIGNS: Blood pressure is 106/69, pulse 70 and regular. SKIN: Shows a tattoo of a [place] in the epigastric and lower chest area. She has a jejunostomy tube with the left upper abdomen with the exit site looking clean without any redness or drainage or obvious inflammation. There is a little tenderness in the left side of the abdomen with percussion and palpation. IMPRESSION: The patient is having some left-sided abdominal pain. I suspect that this may be from increased stool burden and constipation. This has been 3 days since her last bowel movement. I would recommend that we give her a dose of MiraLax through her jejunostomy tube today and repeat this daily to help keep her bowels moving. I think this will hopefully help with her abdominal symptoms. STEFANO
--- NOTE | 2019-07-30 15:49 | Hospitalist Progress Note ---
Date of Service July 30, 2019 Assessment & Plan (1) Abdominal pain: - Presented with diffuse abd pain in setting of recent J-tube infection; infection now appears to be resolved but pt. has persistent pain. - CT A/P with no evidence of obstruction, did show moderate fecal retention. - GI consulted, abd pain may be related to constipation. - Trial Miralax daily through NG tube; continue home Motegrity as well. - Resume tube feedings; IV fluids at 80 cc/hr. - Morphine prn pain. (2) Constipation: - As noted above; last BM on Sunday. (3) Jejunostomy tube present: - In setting of gastroparesis. - Will resume tube feedings via nutrition consult this evening. - Previously treated J-tube site infection, now appears resolved. Will hold further abx and monitor. (4) Gastroparesis: - Continue Granisetron patch as prescribed. - Follows with GI at [facility]. (5) Hypothyroidism: - Continue Synthroid 100 mcg daily. - TSH is 2.1 (6) POTS (postural orthostatic tachycardia syndrome): - Monitored as outpatient. (7) GERD (gastroesophageal reflux disease): - PPI BID. (8) Uses control: - Continue home control. DVT ppx: SCDs; holding pharmacologic ppx. Dispo: Med/surg; discharge pending improvement in abd pain. Subjective Pt. has diffuse abdominal pain on exam. She was most recently evaluated at [facility] in [place] on Sunday - abd pain was improving at the time. Pain started to increase over the last two days. She is taking Tylenol at home, has used intermittent doses of Morphine as inpt. Has not had a BM since Sunday but states this is normal for her. GI consulted, recommends Miralax via J tube as pain may be related to constipation. Will also restart tube feedings. Review of Systems 2 Review of Systems: All systems reviewed & are unremarkable except as noted in HPI & below Constitutional: + anorexia; no fever, no chills, no fatigue and no weakness Respiratory: no cough, no dyspnea and no dyspnea on exertion Cardiovascular: no chest pain, no palpitations and no edema Gastrointestinal: + abdominal pain, + bloating and + constipation; no nausea, no vomiting and no diarrhea/loose stools Genitourinary: no difficulty urinating Musculoskeletal: no back pain and no joint pain Integumentary: no non-healing lesions Physical Exam Physical Exam: General: Resting comfortably HEENT: NC/AT; PERRLA with EOMI; [place] conjunctiva, MMM. No erythema of posterior pharynx Neck: Supple and nontender Cardiac: RRR Lungs: CTA bilaterally Abdomen: Bowel normoactive X 4; Tenderness to palpation over majority of abdomen. J tube site with no evidence of surrounding erythema or discharge. Extremities: Warm. No edema present Neuro: No focal weakness Skin: No rash Results & Data Vital Signs (Past 12 Hours) Vital Signs Temp Pulse Resp BP Pulse Ox 07/30/19 15:31 36.9 C 77 16 103/64 98 07/30/19 12:51 102/65 07/30/19 07:50 37 C 69 16 90/56 L 98 Laboratory Results 07/29/19 07/29/19 07/29/19 Range/Units 22:35 21:20 21:20 WBC (4.8-10.8) K/uL RBC (4.2-5.4) M/uL Hgb (12.0-16.0) g/dL Hct (37-47) % MCV (80-100) fL MCH (25-34) pg MCHC (32-36) g/dL Plt Count (130-400) K/uL Immature Gran % (Auto) % Neut % (Auto) % Lymph % (Auto) % [place] % (Auto) % Eos % (Auto) % Baso % (Auto) % Immature Gran # (Auto) (0.00-0.02) K/uL Neut # (Auto) (1.4-6.5) K/uL Lymph # (Auto) (1.2-3.4) K/uL [place] # (Auto) (0.11-0.59) K/uL Eos # (Auto) (0-0.5) K/uL Baso # (Auto) (0-0.2) K/uL Sodium 138 (136-145) mmol/L Potassium 3.7 (3.5-5.1) mmol/L Chloride 106 (98-107) mmol/L Carbon Dioxide 27 (21-32) mmol/L Anion Gap 5.0 (3-11) BUN 6 L (7-18) mg/dl Creatinine 0.72 (0.6-1.2) mg/dl Est Cr Clr Drug Dosing 107.6 ml/min Est GFR ( Amer) 139.7 Est GFR (Non-Af Amer) 120.6 BUN/Creatinine Ratio 8.9 L (10-20) Glucose 85 (70-99) mg/dl Calcium 9.1 (8.5-10.1) mg/dl Magnesium 2.2 (1.8-2.4) mg/dl Total Bilirubin 0.2 (0.2-1) mg/dl AST 15 (15-37) U/L ALT 13 (12-78) U/L Alkaline Phosphatase 42 L (45-117) U/L Total Protein 7.3 (6.4-8.2) gm/dl Albumin 3.4 (3.4-5.0) gm/dl Globulin 3.9 (2.5-4.0) gm/dl Albumin/Globulin Ratio 0.9 (0.9-2) Lipase 98 (73-393) U/L HCG, Qual Negative (Negative) Urine Color Yellow Urine Appearance Clear (Clear) Urine pH 7.5 (4.5-7.5) Ur Specific [place] 1.019 (1.000-1.030) Urine Protein Negative (Negative) Urine Glucose (UA) Negative (Negative) Urine Ketones Negative (Negative) Urine Blood Negative (Negative) Urine Nitrite Negative (Negative) Urine Bilirubin Negative (Negative) Urine Urobilinogen Negative (Negative) Ur Leukocyte Esterase Negative (Negative) 07/29/19 Range/Units 21:20 WBC 5.92 (4.8-10.8) K/uL RBC 4.44 (4.2-5.4) M/uL Hgb 13.4 (12.0-16.0) g/dL Hct 40.0 (37-47) % MCV 90.1 (80-100) fL MCH 30.2 (25-34) pg MCHC 33.5 (32-36) g/dL Plt Count 302 (130-400) K/uL Immature Gran % (Auto) 0.3 % Neut % (Auto) 50.2 % Lymph % (Auto) 36.5 % [place] % (Auto) 9.6 % Eos % (Auto) 2.7 % Baso % (Auto) 0.7 % Immature Gran # (Auto) 0.02 (0.00-0.02) K/uL Neut # (Auto) 2.97 (1.4-6.5) K/uL Lymph # (Auto) 2.16 (1.2-3.4) K/uL [place] # (Auto) 0.57 (0.11-0.59) K/uL Eos # (Auto) 0.16 (0-0.5) K/uL Baso # (Auto) 0.04 (0-0.2) K/uL Sodium (136-145) mmol/L Potassium (3.5-5.1) mmol/L Chloride (98-107) mmol/L Carbon Dioxide (21-32) mmol/L Anion Gap (3-11) BUN (7-18) mg/dl Creatinine (0.6-1.2) mg/dl Est Cr Clr Drug Dosing ml/min Est GFR ( Amer) Est GFR (Non-Af Amer) BUN/Creatinine Ratio (10-20) Glucose (70-99) mg/dl Calcium (8.5-10.1) mg/dl Magnesium (1.8-2.4) mg/dl Total Bilirubin (0.2-1) mg/dl AST (15-37) U/L ALT (12-78) U/L Alkaline Phosphatase (45-117) U/L Total Protein (6.4-8.2) gm/dl Albumin (3.4-5.0) gm/dl Globulin (2.5-4.0) gm/dl Albumin/Globulin Ratio (0.9-2) Lipase (73-393) U/L HCG, Qual (Negative) Urine Color Urine Appearance (Clear) Urine pH (4.5-7.5) Ur Specific [place] (1.000-1.030) Urine Protein (Negative) Urine Glucose (UA) (Negative) Urine Ketones (Negative) Urine Blood (Negative) Urine Nitrite (Negative) Urine Bilirubin (Negative) Urine Urobilinogen (Negative) Ur Leukocyte Esterase (Negative) PG Care Time/CCT Total # of Minutes Spent Total Time Spent with Patient: Total time spent is greater than 50% in coordination of care (as documented) at patient's floor/unit and/or counseling patient: Coding Level of Care Code 02685 Subseq Hosp Care Lvl 3 Diagnoses Abdominal pain R10.9 Constipation K59.00 Constipation type: unspecified constipation type Jejunostomy tube present Z93.4 Gastroparesis K31.84 Hypothyroidism E03.9 POTS (postural orthostatic tachycardia syndrome) R00.0; I95.1 GERD (gastroesophageal reflux disease) K21.9 Uses control Z78.9 (1) Constipation Constipation type: unspecified constipation type Qualified Code(s): K59.00 - Constipation, unspecified
[2019-07-30] MEDS: [UNRECOGNIZED DRUG - REMARK] SCH (16:27)
[2019-07-30] MEDS ORDERED: PEPTAMEN 1.5 CAL 1,000 ML BAG JT SCH (16:30)
[2019-07-30] MEDS: PEPTAMEN 1.5 CAL 1,000 ML BAG JT SCH (18:06)
[2019-07-30] MEDS: ONDANSETRON INJ 2 MG/ML 2 ML VIAL IV PRN (20:03)
[2019-07-30] MEDS: LEVOTHYROXINE SODIUM 100 MCG TABLET PO SCH (20:33)
[2019-07-30] MEDS: PANTOprazole 40 MG TAB PO SCH (20:33)
[2019-07-30] MEDS: JUNEL FE PO SCH (20:37)
[2019-07-31] MEDS: [UNRECOGNIZED DRUG - REMARK] SCH ×4 (00:26→23:51)
[2019-07-31] MEDS ORDERED: PROMETHAZINE HCL 12.5 MG in SODIUM CHLORIDE 0.9% 50 ML IV STA (00:45)
[2019-07-31] MEDS: SODIUM CHLORIDE 0.9% 1000ML 1,000 ML IV SCH ×3 (01:15→23:53)
[2019-07-31 06:01] LABS: Basophils # (auto) 0.03 K/uL (0-0.2); Basophils % (auto) 0.5 %; Eosinophils # (auto) 0.18 K/uL (0-0.5); Eosinophils % (auto) 3.2 %; Hemoglobin 11.7 g/dL (12.0-16.0); Lymphocytes # (auto) 2.59 K/uL (1.2-3.4); Lymphocytes % (auto) 45.9 %; Mean Corpuscular Hemoglobin 30.6 pg (25-34); Mean Corpuscular Hgb Conc 34.4 g/dL (32-36); Mean Platelet Volume 9.9 fL (7.4-10.4); Monocytes # (auto) 0.51 K/uL (0.11-0.59); Neutrophils # (auto) 2.33 K/uL (1.4-6.5); Neutrophils % (auto) 41.4 %; Platelet Count 248 K/uL (130-400); RDW Coefficient of Variation 13.1 % (11.5-14.5); RDW Standard Deviation 42.3 fL (36.4-46.3); Red Blood Count 3.82 M/uL (4.2-5.4); White Blood Count 5.64 K/uL (4.8-10.8)
[2019-07-31 06:37] LABS: Alanine Aminotransferase 12 U/L (12-78); Albumin Globulin Ratio 0.8 (0.9-2); Albumin Level 2.8 gm/dl (3.4-5.0); Alkaline Phosphatase 35 U/L (45-117); Aspartate Aminotransferase 11 U/L (15-37); Bilirubin,Total 0.3 mg/dl (0.2-1); Blood Urea Nitrogen 5 mg/dl (7-18); Calcium 8.5 mg/dl (8.5-10.1); Carbon Dioxide 25 mmol/L (21-32); Chloride 110 mmol/L (98-107); Creatinine Clr Calc Pharmacy 143.1 ml/min; Est GFR (African American) > 150.0; Est GFR (Non-African American) 130.5; Globulin 3.3 gm/dl (2.5-4.0); Glucose 80 mg/dl (70-99); Magnesium 2.1 mg/dl (1.8-2.4); Phosphorus 3.5 mg/dl (2.5-4.9); Potassium 3.9 mmol/L (3.5-5.1); Sodium 140 mmol/L (136-145); Total Protein 6.1 gm/dl (6.4-8.2)
[2019-07-31] MEDS ORDERED: POLYETHYLENE (MIRALAX) 17 GM PACK PO SCH (09:00)
[2019-07-31] MEDS: PRUCALOPRIDE 2 MG PO SCH (09:11)
[2019-07-31] MEDS: POLYETHYLENE (MIRALAX) 17 GM PACK PO SCH (09:12)
[2019-07-31] MEDS: PANTOprazole 40 MG TAB PO SCH ×2 (10:05→20:07)
[2019-07-31] MEDS ORDERED: POLYETHYLENE (MIRALAX) 17 GM PACK PO ONE ×2 (12:00→17:00)
--- NOTE | 2019-07-31 13:08 | Hospitalist Progress Note ---
Date of Service July 31, 2019 Assessment & Plan (1) Abdominal pain: - Presented with diffuse abd pain in setting of recent J-tube infection; infection now appears to be resolved but pt. has ongoing abd pain. - CT A/P with no evidence of obstruction, did show moderate fecal retention. - GI consulted, abd pain may be related to constipation. - Miralax daily through NG tube, will give an additional dose at lunch time; continue home Motegrity. Will also add fiber to tube feedings. - Resumed tube feedings but pt. is only tolerating 10 cc/hr (goal 50 cc/hr); on IV fluids at 80 cc/hr. (2) Constipation: - As noted above; last BM on Sunday. (3) Jejunostomy tube present: - In setting of gastroparesis. - Resumed tube feedings via nutrition consult; only tolerating 10 cc/hr, goal 50 cc/hr. - Previously treated J-tube site infection, now appears resolved. Hold further abx and monitor. Discussed tube feedings with nutrition -- recommend to prescribe Preeti Farms Peptide 1.5 at goal rate of 50 ml/hr following discharge to home. (4) Gastroparesis: - Continue Granisetron patch as prescribed. - Follows with GI at [place]. (5) Hypothyroidism: - Continue Synthroid 100 mcg daily. - TSH is 2.1 (6) POTS (postural orthostatic tachycardia syndrome): - Monitored as outpatient. (7) GERD (gastroesophageal reflux disease): - PPI BID. (8) Uses control: - Continue home control. DVT ppx: SCDs; holding pharmacologic ppx, encourage ambulation. Dispo: Med/surg; discharge pending improvement in abd pain & constipation. Subjective Pt. has ongoing abd pain -- is located at site of J-tube and extends to right side of abdomen. Pain is rated as a 7/10 on pain scale. Has nausea with tube feedings, is currently only tolerating 10 cc/hr, goal rate of 50 cc/hr. Has not had a BM yet since admission but is passing gas. Tolerating CLD. Review of Systems Review of Systems: All systems reviewed & are unremarkable except as noted in HPI & below Constitutional: + fatigue, + weakness and + anorexia; no fever and no chills Respiratory: no cough, no dyspnea, no dyspnea on exertion and no wheezing Cardiovascular: no chest pain, no palpitations and no edema Gastrointestinal: + abdominal pain, + nausea and + constipation; no vomiting Genitourinary: no difficulty urinating Musculoskeletal: no back pain and no joint pain Integumentary: no non-healing lesions Physical Exam Physical Exam: General: Resting comfortably HEENT: NC/AT; PERRLA with EOMI; [place] conjunctiva, MMM. No erythema of posterior pharynx Neck: Supple and nontender Cardiac: RRR Lungs: CTA bilaterally Abdomen: Bowel normoactive X 4; J tube site with no evidence of surrounding erythema or discharge. TTP over majority of abdomen. Extremities: Warm. No edema present Neuro: No focal weakness Skin: No rash Results & Data ([facility]) Vital Signs (Past 12 Hours) Vital Signs Temp Pulse Resp BP Pulse Ox 07/31/19 07:17 36.9 C 64 16 96/59 L 99 Laboratory Results 07/31/19 07/31/19 Range/Units 05:22 05:22 WBC 5.64 (4.8-10.8) K/uL RBC 3.82 L (4.2-5.4) M/uL Hgb 11.7 L (12.0-16.0) g/dL Hct 34.0 L (37-47) % MCV 89.0 (80-100) fL MCH 30.6 (25-34) pg MCHC 34.4 (32-36) g/dL RDW Std Deviation 42.3 (36.4-46.3) fL RDW Coeff of Jer 13.1 (11.5-14.5) % Plt Count 248 (130-400) K/uL MPV 9.9 (7.4-10.4) fL Immature Gran % (Auto) 0.0 % Neut % (Auto) 41.4 % Lymph % (Auto) 45.9 % Mathews % (Auto) 9.0 % Eos % (Auto) 3.2 % Baso % (Auto) 0.5 % Immature Gran # (Auto) 0.00 (0.00-0.02) K/uL Neut # (Auto) 2.33 (1.4-6.5) K/uL Lymph # (Auto) 2.59 (1.2-3.4) K/uL Mathews # (Auto) 0.51 (0.11-0.59) K/uL Eos # (Auto) 0.18 (0-0.5) K/uL Baso # (Auto) 0.03 (0-0.2) K/uL Sodium 140 (136-145) mmol/L Potassium 3.9 (3.5-5.1) mmol/L Chloride 110 H (98-107) mmol/L Carbon Dioxide 25 (21-32) mmol/L Anion Gap 5.0 (3-11) BUN 5 L (7-18) mg/dl Creatinine 0.61 (0.6-1.2) mg/dl Est Cr Clr Drug Dosing 143.1 ml/min Est GFR ( Amer) > 150.0 Est GFR (Non-Af Amer) 130.5 BUN/Creatinine Ratio 8.0 L (10-20) Glucose 80 (70-99) mg/dl Calcium 8.5 (8.5-10.1) mg/dl Phosphorus 3.5 (2.5-4.9) mg/dl Magnesium 2.1 (1.8-2.4) mg/dl Total Bilirubin 0.3 (0.2-1) mg/dl AST 11 L (15-37) U/L ALT 12 (12-78) U/L Alkaline Phosphatase 35 L (45-117) U/L Total Protein 6.1 L (6.4-8.2) gm/dl Albumin 2.8 L (3.4-5.0) gm/dl Globulin 3.3 (2.5-4.0) gm/dl Albumin/Globulin Ratio 0.8 L (0.9-2) PG Care Time/CCT Total # of Minutes Spent Total Time Spent with Patient: Total time spent is greater than 50% in coordination of care (as documented) at patient's floor/unit and/or counseling patient: Coding Level of Care Code 05548 Subseq Hosp Care Lvl 2 Diagnoses Abdominal pain R10.9 Constipation K59.00 Constipation type: unspecified constipation type Jejunostomy tube present Z93.4 Gastroparesis K31.84 Hypothyroidism E03.9 POTS (postural orthostatic tachycardia syndrome) R00.0; I95.1 GERD (gastroesophageal reflux disease) K21.9 Uses control Z78.9 (1) Constipation Constipation type: unspecified constipation type Qualified Code(s): K59.00 - Constipation, unspecified
[2019-07-31] MEDS: ONDANSETRON INJ 2 MG/ML 2 ML VIAL IV PRN (13:18)
[2019-07-31] MEDS: SACCHAROMYCES BOULARDII 250 MG CAP PO SCH (17:10)
--- NOTE | 2019-07-31 17:19 | XRay Report ---
MARGIE CLINICAL HISTORY: Constipation. FINDINGS: An AP supine abdominal radiograph is compared to study dated 03/07/2019 and correlated with a bdominal CT dated 07/29/2019. A jejunostomy tube is in place. There is no bowel obstruction. Moderate fecal retention is noted in the colon. No evidence of intraperitoneal free air is seen on this supine examination. There are no abnormal abdominal calcifications. The bony structures appear intact. IMPRESSION: 1. A jejunostomy tube is in place. 2. No bowel obstruction. 3. Moderate colonic fecal retention. Electronically signed by: Brooks Travis M.D. 07/31/2019 5:17 PM
[2019-07-31] MEDS: PEPTAMEN 1.5 CAL 1,000 ML BAG JT SCH (17:52)
--- NOTE | 2019-07-31 19:27 | Progress Note ---
DATE: 07/31/2019 The patient received a dose of MiraLax last night, this morning, noon and currently at around 5:00 p.m. She did move her bowels around 2:00 p.m. and about 5 minutes ago with a mixture of solid and liquid stool. She reports that she still has the same abdominal pain that she had before. She is receiving her tube feedings, which she feels may be contributing to her pain. On exam, the J-tube exit site looks clean. There is tenderness to light palpation throughout the entire abdomen. She does report that her last period was in June. IMPRESSION AND PLAN: The patient continues to have abdominal pain despite moving her bowels. I plan on continuing MiraLax for now to keep her bowels moving and we will get an abdominal and pelvic ultrasounds just to make sure there is nothing going on in her abdomen that we were unaware of such as ruptured ovarian cyst or abscess.
--- NOTE | 2019-07-31 19:33 | Ultrasound Report ---
ULTRASOUND ABDOMEN COMPLETE CLINICAL HISTORY: Generalized abdominal pain. COMPARISON STUDY: Abdominal CT dated 07/29/2019. TECHNIQUE: Real-time, grayscale, and color flow sonography of the abdomen was performed. Images are r eviewed in the transverse and longitudinal planes. FINDINGS: Liver: The liver is normal in size and echotexture. There is no intrahepatic biliary ductal dilatatio n. The main portal vein is patent. Gallbladder: The gallbladder is normal in appearance. No gallstones are identified. There is no gallb ladder wall thickening or pericholecystic fluid. A sonographic Minor's sign is reportedly absent. Th e common bile duct measures up to 0.3 cm in diameter. Pancreas: Visualized portions of the pancreatic head and body are normal in appearance. The splenic v ein is patent. Spleen: The spleen is normal in size and echotexture, measuring 12.5 cm in length. Kidneys: The kidneys are normal in size and echotexture. There is no hydronephrosis. The right kidney measures 11.6 cm in length and the left kidney measures 10.9 cm in length. No shadowing calculi are identified. Abdominal vasculature: Visualized portions of the abdominal aorta and IVC are normal as imaged. Ascites: None. IMPRESSION: No acute sonographic abnormality is identified. ACT 112: Negative or not required by law. Electronically signed by: Brooks Travis M.D. 07/31/2019 7:32 PM
--- NOTE | 2019-07-31 19:35 | Ultrasound Report ---
ULTRASOUND OF THE PELVIS CLINICAL HISTORY: Pelvic pain. COMPARISON STUDY: Pelvic CT dated 07/29/2019. TECHNIQUE: Real-time, grayscale, and color flow sonography of the pelvis is performed both transabdom inally and endovaginally. Images are reviewed in the transverse and longitudinal planes. The endovagi nal examination was performed for better assessment of the ovaries and adnexa. FINDINGS: Uterus: The uterus is normal in size and echotexture, measuring 8.5 x 3.1 x 4.6 cm. Endometrium: The endometrium is normal in appearance, and the endometrial stripe is normal in thickne ss measuring up to 0.2 cm. Ovaries: The ovaries are normal in size and morphology. The right ovary measures 3.0 x 1.0 x 1.9 cm a nd the left ovary measures 2.9 x 1.2 x 2.1 cm. Small follicles are seen bilaterally. Normal Doppler w aveforms are shown within both ovaries. Pelvis: There is trace free fluid in the cul-de-sac. No concerning adnexal lesion is seen. IMPRESSION: 1. No acute sonographic abnormality is identified. 2. Trace nonspecific free fluid in the cul-de-sac is likely within physiologic limits. ACT 112: Negative or not required by law. Electronically signed by: Brooks Travis M.D. 07/31/2019 7:34 PM
[2019-07-31] MEDS: JUNEL FE PO SCH (20:07)
[2019-07-31] MEDS: LEVOTHYROXINE SODIUM 100 MCG TABLET PO SCH (20:07)
[2019-08-01] MEDS: MoRPHine SULFATE 2 MG/ML CARP IV PRN (00:44)
[2019-08-01] MEDS: ONDANSETRON INJ 2 MG/ML 2 ML VIAL IV PRN (06:14)
[2019-08-01 06:39] LABS: BUN Creatinine Ratio 6.2 (10-20); Blood Urea Nitrogen 4 mg/dl (7-18); Calcium 8.2 mg/dl (8.5-10.1); Carbon Dioxide 26 mmol/L (21-32); Chloride 110 mmol/L (98-107); Creatinine Clr Calc Pharmacy 150.5 ml/min; Est GFR (African American) > 150.0; Est GFR (Non-African American) 132.7; Glucose 88 mg/dl (70-99); Potassium 3.7 mmol/L (3.5-5.1); Sodium 140 mmol/L (136-145)
[2019-08-01] MEDS: SACCHAROMYCES BOULARDII 250 MG CAP PO SCH (08:40)
[2019-08-01] MEDS: POLYETHYLENE (MIRALAX) 17 GM PACK PO SCH (08:40)
[2019-08-01] MEDS: PANTOprazole 40 MG TAB PO SCH (08:40)
[2019-08-01] MEDS: [UNRECOGNIZED DRUG - REMARK] SCH (08:40)
[2019-08-01] MEDS: PRUCALOPRIDE 2 MG PO SCH (08:40)
[2019-08-01] MEDS: SODIUM CHLORIDE 0.9% 1000ML 1,000 ML IV SCH (11:12)
--- NOTE | 2019-08-01 15:00 | Progress Note ---
DATE: 08/01/2019 REASON FOR EVALUATION: Abdominal pain and intestinal dysmotility. The patient underwent an abdominal and pelvic ultrasound yesterday and no structural abnormalities were found. She continues to have pain, but it is definitely triggered by her jejunostomy tube feedings and it is a feeling of the oil and gas field technician that it may be the formula that she is receiving that is triggering her pain. This is a different formula than she has received as an outpatient. IMPRESSION: The patient's abdominal pain appears to be related to the tube feedings which will be changed. She is getting a case sent to her dorm and campus and hopefully can initiate these tomorrow and contact the oil and gas field technician here if there are any complications. If there is any GI need over the weekend Dr. Joseph Garsia from [facility] is covering.
--- NOTE | 2019-08-01 15:19 | Communication Note ---
Date of Service: August 01, 2019 Patient has ongoing abdominal pain in the setting of gastroparesis. She does have constipation on imaging. She does report some improvement of symptoms with stopping her tube feeds. It has been discussed as an outpatient to try Preeti Farms Peptide with nutrition. Due to non-formulary and discussion with patient. Do agree to order this feed even without trial in hospital and to convert to this brand. Nutrition will follow closely as outpatient. Again, I feel comfortable trying a new feed without an in-hospital trial for tolerance.
--- NOTE | 2019-08-01 19:57 | Discharge Summary ---
Date of Service August 01, 2019 Admission HPI Per Admitting Provider Edilma Rai is a 19 y/o female with past medical hx of Dysautonomia, Gastroparesis leading to J-tube placement 05/2019, hypothyroid, GERD who presented for abdominal pain and concern for Jtube infection. She notes onset of abdominal pain that is located around J-tube site about 2 weeks ago. It is worsened with movements and with J-tube feeds. She has had 3 prior ED visits for same since 07/18/19, then 07/19/19, then yesterday 07/28/19, and now today. 07/18/19 visit - Received Rocephin IV in ED, then was discharged home on Keflex 500mg for possible soft tissue infection around J-tube site with redness and drainage. Also received Morphine 4mg IV x2, Zofran 4mg IV x1, Had CT Abd mild inflammation in abdominal wall. 07/19/19 visit - returned for subjective worsening of symptoms, Had CT Abd without changes, Dilaudid 1mg x1, Oxycodone Rx for breakthrough pain, started on Bactrim. 07/21/19 - saw Surgeon Dr. Hinds as outpatient, was doing better, believed to have mild infection of tube, but patient was noted to be doing better. 07/28/19 - seen in ED last night for same, Morphine 6mg IV x1, Zofran, Rocephin 2gm IV. Was switched to Clindamycin PO Today she returns for same, noting drainage around tube site, but in ED during H&P, noted that erythema has resolved. She noted to have vomiting x1 for when she tool Clindamycin. She had another CT scan showing no inflammation, moderate fecal retention. She notes feeling better s/p pain analgesics, no current nausea. She notes she follows with a Gastroparesis specialist at [facility]. She follows with Asa Castaneda for her Dysautonomia. She notes she takes Zofran PRN, Promethazine 25mg q6H PRN, Sancuso patch for nausea related to her gastroparesis. Her labs were unremarkable here. Principal Diagnosis Abdominal pain/gastroparesis/constipation Discharge Exam Constitutional WD/WN, vitals as above Eyes + anicteric sclerae ENMT Ears: no hearing impairment Neck trachea midline Respiratory normal respiratory effort, lungs clear to auscultation Cardiovascular RRR, no murmur, no edema Gastrointestinal (Abdomen) Inspection/Auscultation: normal bowel sounds Percussion/Palpation: abdomen soft; abdomen nontender J tube present with mild crusting at opening but no erythema noted Musculoskeletal Head/Neck/Chest: normocephalic and head atraumatic Skin no rashes, warm and dry Neurologic moves all extremities Psychiatric A+Ox3, euthymic affect Discharge Data Allergies Allergy/AdvReac Type Severity Reaction Status Date / Time banana Allergy Mild HIVES, Verified 07/29/19 23:22 TONGUE TINGLING, NAUSEA latex AdvReac Intermediate Hives Verified 07/29/19 23:22 Consultations 07/29/19 23:12 ED Decision to Admit Stat 07/30/19 02:47 Consult Gastroenterology Routine Ordered Studies 07/29/19 21:15 CT abd pelvis IV con only Stat 07/31/19 17:27 US abdomen complete Routine US pelvic complete Routine 07/31/19 19:06 US transvaginal Routine Hospital Course (1) Abdominal pain: - Presented with diffuse abd pain in setting of recent J-tube infection; infection now appears to be resolved but pt. has ongoing abd pain. - CT A/P with no evidence of obstruction, did show moderate fecal retention - is moving bowels but still ongoing pain - GI consulted, abd pain may be related to constipation - Continue bowel regiment at home; was discussed possibility of this being feeding tube related. Did write an Rx for Scalix formula to start at 10 mL/hr and advance as tolerated to goal of 50 mL/hr for continuous feeds. It is not formulary and unable to do trial in-hospital. Discussed with patient and clinically looks well without acute findings that we feel comfortable to allow her to go home and start this on her own. She is well educated on her feeds and capable of management. She follows with our nutrition team and discussed with them and to have F/U as outpatient. It is possible this could be from some dietary intolerance to her previous formulas; instructed to continue fiber supplement, probiotic, and free water (2) Jejunostomy tube present: - In setting of gastroparesis. (3) Gastroparesis: - Continue Granisetron patch as prescribed. - Follows with GI at [place]. (4) Hypothyroidism: - Continue Synthroid 100 mcg daily. - TSH is 2.1 (5) POTS (postural orthostatic tachycardia syndrome): - Monitored as outpatient. (6) GERD (gastroesophageal reflux disease): - PPI BID. Total Time Total Time Spent Total Time Spent (In Minutes): Greater than 30 minutes Discharge Plan Discharge Items Patient Disposition: Home - Self-Care Reason For Visit: J-TUBE PROBLEMS, ABDOMINAL PAIN Discharge Diagnosis: Abdominal Pain Condition on Discharge: Fair Goals: You have been hospitalized for an acute medical problem. During your stay at [facility], we have made an effort to correct the problem that brought you to the hospital while keeping you as comfortable as possible. Medications were used to bring your condition under control and your discharge instructions will include directions for any medications you should take after leaving the hospital. Please make sure you see your Primary Care Provider as part of your follow up plan. Activity: As commented below Exercise/Sports: Gradually increase as tolerated Non-emergency contact: Primary Care Provider and Hot Pipe Gauger Call non-emergency contact if: you have any medication questions, your symptoms worsen, your pain is not controlled, your pain is worsening, your pain is unusual for you, your pain is concerning for you and you have a fever Follow-up/Referrals: [facility] [Primary Care Provider] - 08/05/19 10:40 am (Please, follow up at [facility] with Dr. Sandra Mirza on SundayAugust 05 at 10:40 am. *If you need to change this appointment, call the office at [phone].) Diet: Clear liquid Diet Comment: Resume tube feedings. Addtl Attending Provider Instructions: 1. Abdominal Pain * Please continue home constipation medication as prescribed. * Consider addition of Miralax daily via J-tube for persistent constipation. * Keep active and walk - this helps keep the bowels moving. * Please follow up with leather novelty parts cutter as scheduled. * Thankfully imaging does not reveal an acute cause of pain. Liver is normal; gallbladder normal; no signs of ovarian cysts on imaging * Continue to keep an eye on your J tube insertion sight for any pain, redness, drainage 2. Tube feedings * Change in formula - [facility] will deliver the new feeds tomorrow to your home. You can start these at 10 mL/hr and advance to goal of 50 mL/hr as tolerated. * You will need to try and get 1025 mL of free water, in addition to feeds whether you drink this by mouth or place in J-tube * Continue fiber supplement as discussed with Nutrition; recommend to continue probiotics as well as this can help keep good GI marion in place Pending Studies at Discharge: Yes Studies:: Wound culture 07/29 negative (prelim) Stand-Alone Forms: My [facility], Opioid Pain Management Medications and DC Order Prescriptions: Continued norethindrone-e.estradiol-iron 1 mg-20 mcg (21)/75 mg (7) tablet 1 tab PO HS RF: 0 levothyroxine 100 mcg tablet 100 mcg PO HS RF: 0 pantoprazole 40 mg Tablet,Delayed Release (Dr/Ec) 40 mg PO BID RF: 0 Motegrity 2 mg Tablet 2 mg PO QAM RF: 0 Sancuso 3.1 mg/24 hour patch weekly 1 patch topical MO RF: 0 cholecalciferol (vitamin D3) [Vitamin D3] 25 mcg (1,000 unit) Capsule 1,000 unit PO QAM RF: 0 folic acid 0.8 mg Capsule 0.8 mg PO QAM RF: 0 oxycodone 5 mg tablet 5 mg PO Q6H PRN (Reason: pain) Qty: 14 RF: 0 ondansetron HCl [Zofran] 4 mg tablet 4 mg PO DAILY PRN (Reason: nausea and vomiting) Qty: 6 RF: 0 acetaminophen [Tylenol Extra Strength] 500 mg Tablet 1,000 mg PO Q12H RF: 0 promethazine 25 mg Tablet 25 mg PO Q6H PRN (Reason: Nausea And Vomiting) RF: 0 Discontinued clindamycin HCl 300 mg capsule 300 mg PO Q6H 10 Days Qty: 40 RF: 0 Discharge Orders: Discharge Order (Routine); Ordered 08/01/19 Ordered By: Shea Adam/Other Patient Handouts: ED Constipation Admission Data Admit Date/Time: 07/30/19 14:05 Attending Provider: Bong Anglin Admit Provider: Harsha Negrete Primary Care Provider: [facility] Other Providers: Jose Palafox ; Tim Marquez Other Interventions: Discharge Summary Assessment (RN) Last Done: 08/01/19 16:38 DC Date/Time DO NOT enter until pt leaves facility: 08/01/19 18:21 Supervising Physician Co-Signing Physician Notes Patient was seen and examined by me personally. I performed a brief history and phsyical exam. I reviewed the chart, the orders and discussed the discharge plan in detail with Shea SHAH . I read this discharge summary and agree with its contents to entirety. Patient's abdominal pain has improved. Patient is passing gas and having bowel movements. Will discharge patient. Coding Level of Care Code D/C Day Management >30 mins Diagnoses Abdominal pain R10.9 Jejunostomy tube present Z93.4 Gastroparesis K31.84 Hypothyroidism E03.9 POTS (postural orthostatic tachycardia syndrome) R00.0; I95.1 GERD (gastroesophageal reflux disease) K21.9
[2019-08-02] MEDS ORDERED: FERROUS FUMARATE PO SCH (21:00)
[2019-08-04] MEDS ORDERED: GRANISETRON TD SCH (09:00)
== END 2019-08-01 18:21 | disposition home or self-care (01) | DRG 392 ==
LOC: ED 19:10 → 3E 19:10 → SUATTDRO 07-30 01:40 → 3E 07-30 02:27